=== PATIENT | female | born 1945 | race Caucasian/White ===

== ENCOUNTER → 2018-02-14 09:58 | Outpatient (REF) | payer OTHER, SELFPAY ==
[2018-02-14 21:33] LABS: Hemoglobin A1C 6.6 % (4.5-6.2)
[2018-02-14 21:44] LABS: ALT 22 U/L (12-78); AST 14 U/L (15-37); Albumin 3.5 g/dL (3.4-5.0); Alkaline Phosphatase 92 U/L (46-116); Anion Gap 9.7 mmol/L (3-11); BUN 20 mg/dL (7-18); Bilirubin, Total 0.3 mg/dL (0.2-1.0); CO2 28.3 mmol/L (21.0-32.0); CREATININE 0.81 mg/dL (0.55-1.02); Calcium 8.8 mg/dL (8.5-10.1); Chloride 105 mmol/L (98-107); Cholesterol 261 mg/dL (50-200); Glucose 118 mg/dL (70-100); HDL Cholesterol 35 mg/dL (40-60); LDL CHOLESTEROL 197 mg/dL (<100); Potassium 3.8 mmol/L (3.5-5.1); Sodium 143 mmol/L (136-145); TSH 1.79 uIU/mL (0.358-3.74); Total Protein 7.2 g/dL (6.4-8.2); Triglyceride 126 mg/dL (30-150)
== END ==
LOC: NCHCN 09:58
PROVIDERS: PCP Family Medicine; Visit Provider Family Medicine
DX: E78.5 Hyperlipidemia, unspecified (principal); I10 Essential (primary) hypertension; E03.9 Hypothyroidism, unspecified; R73.01 Impaired fasting glucose
CPT/HCPCS: 80053; 80061; 83721; 83036; 84443

== ENCOUNTER 2018-04-24 19:39 | Outpatient (REF) | payer OTHER, SELFPAY ==
[2018-04-24 21:53] LABS: ALT 25 U/L (12-78); Cholesterol 260 mg/dL (50-200); HDL Cholesterol 38 mg/dL (40-60); LDL CHOLESTEROL 197 mg/dL (<100); Triglyceride 154 mg/dL (30-150)
== END 2018-04-24 19:59 ==
LOC: NCHCN 19:39
PROVIDERS: PCP Family Medicine; Visit Provider Family Medicine
DX: E78.5 Hyperlipidemia, unspecified (principal)
CPT/HCPCS: 80061; 83721; 84460

== ENCOUNTER 2018-07-04 00:39 | Outpatient (CLI) | payer OTHER, SELFPAY ==
--- NOTE | 2018-07-04 12:35 | DI.US_ITS ---
SYMPTOMS/DIAGNOSIS: POSTMENOPAUSAL BLEEDING, N95.0 PELVIC ULTRASOUND: A transabdominal and transvaginal examination was carried out. The uterus measures 9.1 cm in length, 5.3 cm in height and 5.1 cm in width with an endometrial stripe thickness of 12+ mm. There are multiple cysts within the mid inferior portion of the endometrium. There is a 2.4 x 2.7 x 1.4 hyperechoic region in the anterior mid uterus with a hypoechoic 8 mm region. A 6 mm nabothian cyst is also identified. The ovaries were not visualized. The kidneys are normal. SUMMARY: A thickened, irregular, heterogeneous endometrium is demonstrated as described above. A region of abnormality involving the anterior fundus of the uterus likely represents a fibroid and measures 2.4 x 2.7 x 1.4 cm. Further evaluation of this patient with hysteroscopy is suggested to evaluate the possibility of an endometrial malignancy.
== END 2018-07-04 00:59 ==
PROVIDERS: PCP Family Medicine; Visit Provider Physician Assistant Medical
DX: N95.0 Postmenopausal bleeding (principal); R93.89 Abnormal findings on diagnostic imaging of other specified body structures; D25.9 Leiomyoma of uterus, unspecified
CPT/HCPCS: 76830; 76856

== ENCOUNTER 2018-07-24 13:37 | Outpatient (REF) | payer OTHER, SELFPAY ==
--- NOTE | 2018-07-24 10:40 | ENDOMET_PTH ---
PATIENT: SavDecember LOC: [facility] U#:[id number] AGE/SX: 72/F ROOM: RE07/24/[address]: Melvin Howard MD : 1945 BED: DIS: 07/24/2018 SPEC #: [id number] RECD: 07/24/18 17:37 STATUS: EDINSON REQ #: [id number] REAL: 07/24/18 10:[address]: Melvin Howard DEPT: Surgical Specimen RECD BY: Katiuska Mustafa ENTERED: 07/24/18 17:37 SP TYPE: Endomet OTHR DR: Maribel Blanc V Tissues: 1 - ENDOMETRIUM BX/CURRETTE Procedures: GROSS AND MICRO LEVEL 4 Comments: [id number]
--- NOTE | 2018-07-24 10:40 | PAPFT_PTH ---
PATIENT: SavDecember LOC: [facility] U#:[id number] AGE/SX: 72/F ROOM: RE07/24/[address]: Melvin Howard MD : 1945 BED: DIS: 07/24/2018 SPEC #: [id number] RECD: 07/24/18 17:56 STATUS: LYUBOVMiranda REMarkos #: [id number] REAL: 07/24/18 10:[address]: Melvin Howard DEPT: [facility] Cytology RECD BY: Katiuska Mustafa ENTERED: 07/24/18 17:57 SP TYPE: PAPFT OTHR DR: Maribel Blanc V Tissues: 1 - CX/ENDOCX FOR PAP SMEARS Procedures: PAP THIN PREP/UVM Screening Comments: [id number]
== END 2018-07-24 13:57 ==
LOC: LBN 13:37
PROVIDERS: PCP Family Medicine; Visit Provider Obstetrics & Gynecology
DX: N84.0 Polyp of corpus uteri (principal); N95.0 Postmenopausal bleeding; Z12.4 Encounter for screening for malignant neoplasm of cervix
CPT/HCPCS: 88142; 88305

== ENCOUNTER 2018-08-07 01:03 | Outpatient (CLI) | payer OTHER, SELFPAY ==
--- NOTE | 2018-08-07 08:00 | DI.MAMMO_ITS ---
SYMPTOMS/DIAGNOSIS: SCREENING FOR MALIGNANT NEOPLASM OF THE BREAST, Z12.31 MAMMOGRAMS: Mammograms were interpreted according to the usual protocol including computer analysis with CAD system, tomosynthesis and C view imaging. Comparison is with the prior examinations. No suspicious masses or microcalcifications are seen. There is no definite evidence of malignancy. IMPRESSION: Negative mammogram. Routine screening is recommended. Category 1, breast density A. MQSA ASSESSMENT OF FINDINGS: Negative. Category 1. Patient will receive a letter notifying them of these results. BI-RAD category A. The breasts are almost entirely fatty.
== END 2018-08-07 01:23 ==
PROVIDERS: PCP Family Medicine; Visit Provider Obstetrics & Gynecology
DX: Z12.31 Encounter for screening mammogram for malignant neoplasm of breast (principal)
CPT/HCPCS: 77063; 77067

== ENCOUNTER 2018-08-21 11:44 | Outpatient (CLI) | payer OTHER, SELFPAY ==
[2018-08-21 15:25] LABS: HCT 41.6 % (36.0-46.0); HGB 13.1 g/dL (12.0-15.5); Mean Corp. HGB Concentration 31.5 g/dL (32.0-36.0); Mean Corpuscular Hemoglobin 28.3 pg (27.0-33.0); Mean Corpuscular Volume 89.8 fL (80-95); Platelet Count 347 x1000/uL (130-400); RBC 4.63 m/cumm (4.00-5.20); RBC Distribution Width 13.2 % (11.7-14.6); White Blood Cell Count 9.19 k/cumm (4.4-10.8)
== END 2018-08-21 12:04 ==
PROVIDERS: PCP Family Medicine; Visit Provider Obstetrics & Gynecology
DX: N95.0 Postmenopausal bleeding (principal); Z01.818 Encounter for other preprocedural examination
CPT/HCPCS: 36415; 85027

== ENCOUNTER 2018-08-22 06:09 | Day surgery (SDC) | payer OTHER, SELFPAY ==
[2018-08-22 06:16] VITALS: BP 126/72; PULSE 71; RESP 20; TEMP 36.5; O2SAT 96
[2018-08-22] MEDS: Lactated Ringers 1,000 ML 100 ML IV (06:50)
--- NOTE | 2018-08-22 07:45 | ENDOMET_PTH ---
PATIENT: SavDecember LOC: [facility] U#:[id number] AGE/SX: 72/F ROOM: RE08/22/[address]: Melvin Howard MD : 1945 BED: DIS: 08/22/2018 SPEC #: [id number] RECD: 08/22/18 12:31 STATUS: EDINSON RAE #: [id number] REAL: 08/22/18 07:[address]: Melvin Howard DEPT: Surgical Specimen RECD BY: Katiuska Mustafa ENTERED: 08/22/18 12:36 SP TYPE: Endomet OTHR DR: Maribel Blanc V Tissues: 1 - ENDOMETRIUM BX/CURRETTE 2 - ENDOMETRIUM BX/CURRETTE Procedures: GROSS AND MICRO LEVEL 4 Comments: [id number]
[2018-08-22] MEDS: Lidocaine 1% Multi-Dose 50 ML VIAL (07:58)
[2018-08-22 08:26] VITALS: BP 142/66; PULSE 61; RESP 18; TEMP 36.4; O2SAT 96
--- NOTE | 2018-08-22 11:54 | W.PM.OP ---
Date of service: 08/22/18 Time of Service: 11:54 Operative Note DATE OF PROCEDURE: 08/22/18 PRE-OP DIAGNOSIS: Postmenopausal bleeding POST-OP DIAGNOSIS: same ANESTHESIA: MAC ESTIMATED BLOOD LOSS: 0 PATHOLOGY: other (Endometrial polyps, endometrial curettings) COMPLICATIONS: None Patient was transported to: PACU Patient's condition: stable Findings: 1. 2 endometrial polyps in a background of atrophic appearing endometrium. Procedure Description: The patient was taken to the operating room and after adequate level of anesthesia was obtained. The patient was placed in lithotomy position. The patient was prepped and draped in the usual sterile manner. The bladder was straight cathed for approximately 10 cc of clear urine. The weighted speculum was placed in the vagina with good visualization of the cervix. A paracervical block with 10 cc of 1% plain lidocaine was instilled. The anterior lip of the cervix was grasped with a single-tooth tenaculum and the cervix was gently dilated with Bess dilators. A 5 mm hysteroscope with normal saline distention media was advanced throug the cervix. 2 endometrial polyps were noted. The remaining endometrium appeared to be atrophic in appearance. The polyps were grasped with polyp forceps after removal of the hysteroscope. The polyps were removed easily. A sharp curettage was performed and submitted as a separate specimen. A second pass with the hysteroscope was made confirming complete removal of the polyps. All instrumentation was removed. Excellent hemostasis noted. The procedure was concluded at this point. Sponge, lap, and instrument counts were correct at the conclusion of the procedure and the patient was transferred to PACU in stable condition.
== END 2018-08-22 08:50 | disposition home or self-care (01) ==
LOC: SUR 06:10
PROVIDERS: PCP Family Medicine; Visit Provider Obstetrics & Gynecology
PROC: 0UDB8ZZ Extraction of Endometrium, Via Natural or Artificial Opening Endoscopic (ICD-10-PCS; CPT 58558; principal; 2018-08-22 07:30)
DX: N95.0 Postmenopausal bleeding (principal); N85.02 Endometrial intraepithelial neoplasia [EIN]; N85.01 Benign endometrial hyperplasia; I10 Essential (primary) hypertension; G47.33 Obstructive sleep apnea (adult) (pediatric)
CPT/HCPCS: 58558; 88305; J1100; J2405

== ENCOUNTER 2018-08-29 14:48 | Outpatient (REF) | payer OTHER, SELFPAY ==
[2018-08-29 19:47] LABS: HCT 41.8 % (36.0-46.0); HGB 13.7 g/dL (12.0-15.5); Mean Corp. HGB Concentration 32.8 g/dL (32.0-36.0); Mean Corpuscular Hemoglobin 29.1 pg (27.0-33.0); Mean Corpuscular Volume 88.7 fL (80-95); Mean Platelet Volume 10.9 fL (8.0-11.0); Platelet Count 292 x1000/uL (130-400); RBC 4.71 m/cumm (4.00-5.20); RBC Distribution Width 13.2 % (11.7-14.6)
[2018-08-29 20:24] LABS: Anion Gap 8.2 mmol/L (3-11); BUN 20 mg/dL (7-18); CO2 29.8 mmol/L (21.0-32.0); CREATININE 0.77 mg/dL (0.55-1.02); Calcium 9.6 mg/dL (8.5-10.1); Chloride 103 mmol/L (98-107); Glucose 151 mg/dL (70-100); Sodium 141 mmol/L (136-145); TSH (W/Ref FT4) 2.02 uIU/mL (0.358-3.74)
== END 2018-08-29 15:08 ==
LOC: NCHCN 14:48
PROVIDERS: PCP Family Medicine; Visit Provider Specialist/Technologist Athletic Trainer
DX: I10 Essential (primary) hypertension (principal); E03.9 Hypothyroidism, unspecified; Z01.818 Encounter for other preprocedural examination
CPT/HCPCS: 80048; 85027; 84443

== ENCOUNTER 2018-10-23 12:33 | Outpatient (CLI) | payer OTHER, SELFPAY ==
[2018-10-23 15:31] LABS: HCT 40.1 % (36.0-46.0); HGB 13.1 g/dL (12.0-15.5); Mean Corp. HGB Concentration 32.7 g/dL (32.0-36.0); Mean Corpuscular Hemoglobin 28.7 pg (27.0-33.0); Mean Corpuscular Volume 87.9 fL (80-95); Mean Platelet Volume 10.7 fL (8.0-11.0); Platelet Count 328 x1000/uL (130-400); RBC 4.56 m/cumm (4.00-5.20); White Blood Cell Count 10.25 k/cumm (4.4-10.8)
[2018-10-23 16:32] LABS: BUN 19 mg/dL (7-18); Chloride 102 mmol/L (98-107); Glucose 93 mg/dL (70-100); Sodium 139 mmol/L (136-145)
[2018-10-23 16:38] LABS: Calcium 9.6 mg/dL (8.5-10.1)
== END 2018-10-23 12:53 ==
PROVIDERS: PCP Family Medicine; Visit Provider Obstetrics & Gynecology
DX: N95.0 Postmenopausal bleeding (principal); Z01.818 Encounter for other preprocedural examination
CPT/HCPCS: 36415; 80048; 85027; 86850; 86900; 86901

== ENCOUNTER 2018-10-24 12:48 | Observation (INO) | payer OTHER, SELFPAY ==
[2018-10-23 12:48] VITALS: BP 143/77; PULSE 78; RESP 18; TEMP 36.7; O2SAT 94
[2018-10-24] VITALS (17 sets, daily range): BP systolic 92–154; BP diastolic 40–86; PULSE 55–80; RESP 16–21; TEMP 36.4–36.9; O2SAT 94–98
[2018-10-24] MEDS: Lactated Ringers 1,000 ML 125 ML IV ×4 (07:15→18:57)
[2018-10-24] MEDS: ceFAZolin 2 GM/50 ML BAG IVPB (10:15)
[2018-10-24] MEDS: Bupivacaine 0.25% Pres-Free 30 ML VIAL (11:30)
--- NOTE | 2018-10-24 12:00 | UTER_PTH ---
PATIENT: SavDecember LOC: [facility] U#:[id number] AGE/SX: 72/F ROOM: OBS.306 RE10/24/[address]: Melvin Howard MD : 1945 BED: A DIS: 10/25/2018 SPEC #: [id number] RECD: 10/24/18 17:32 STATUS: EDINSON REQ #: [id number] REAL: 10/24/18 12:[address]: Melvin Howard DEPT: Surgical Specimen RECD BY: Katiuska Mustafa ENTERED: 10/24/18 17:32 SP TYPE: UTER OTHR DR: Maribel Blanc V Tissues: 1 - UTERUS W OR W/O OVARIES(NOT TUMOR/PROLAPSE) Procedures: GROSS AND MICRO LEVEL 5 Comments: [id number]
[2018-10-24] MEDS: Vasopressin 20 UNITS/ML VIAL (12:30)
[2018-10-24] MEDS: Normal Saline 20 ML VIAL (12:30)
--- NOTE | 2018-10-24 15:34 | ROE_ITS ---
Date of service: 10/24/18 Time of Service: 15:26 Operative Note DATE OF PROCEDURE: 10/24/18 PRE-OP DIAGNOSIS: Complex atypical hyperplasia of the endometrium POST-OP DIAGNOSIS: same PROCEDURE: LAVH BSO, cystoscopy SURGEON: Melvin Howard ASSISTING SURGEON: Marquita Hernandez ANESTHESIA: GETA ESTIMATED BLOOD LOSS: 100 PATHOLOGY: other (Uterus tubes and ovaries) COMPLICATIONS: None Patient was transported to: PACU Patient's condition: stable Findings: Normal appearance to uterus, tubes and ovaries. Procedure Description: The patient was taken to the operating room and after adequate level of general anesthesia was obtained. The patient was placed in lithotomy position. The patient was prepped and draped in usual sterile manner. A Guerrier catheter was placed in the bladder draining clear urine. A Roadster uterine manipulator was placed through the cervix. The patient was repositioned. The surgeon was regloved. Attention was then turned to the patient's abdomen. A small infraumbilical skin incision was then made with a #15 blade scalpel after infiltration with 0.5% Marcaine solution. Sharp dissection was carried down to the underlying layer of fascia. The fascia was grasped and elevated with 2 cord clamps and the fascia was incised sharply with a 15 blade scalpel. The peritoneum was entered sharply with hemostats. 2S retractors were placed and 2 sutures of 0 Vicryl were placed inside the vaginal incision. The Roy trocar was advanced without difficulty and secured in place. The abdomen was insufflated to approximately 40 mmHg with carbon dioxide. 2 5 mm trochars were placed under direct visualization in the right and left lower quadrant. Uterus is grossly normal in appearance. The ovaries are normal in appearance. The fallopian tubes were also normal in appearance. With use of the LigaSure device dissection was first carried across the right suspensory ligament and carried down to the broad ligament. Dissection was carried across the round ligament and dissection was carried across the anterior leaf developing the bladder flap to the midline. Further dissection down the broad ligament was taken down to the level of the uterine vessels with the use of the LigaSure device. Attention was turned to the opposite side where similar dissection was carried out. The bladder flap dissection was completed and the bladder was reflected inferiorly. Next hemostasis was noted attention was then turned to the vaginal portion of this procedure. The patient was repositioned. A weighted speculum was placed in the vagina with good visualization of the cervix. The cervix was grasped with a single-tooth tenaculum. The paracervical tissues were infiltrated with vasopressin solution at a concentration of 20 mL's in 60 cc of saline. A circumferential incision was made at the vesicocervical junction with a #10 blade scalpel. Blunt sharp dissection used to develop the anterior posterior planes. The cul-de-sac was entered sharply. The anterior plane was developed again with blunt and sharp dissection to the peritoneum was entered anteriorly and a right angle retractor was placed reflecting the bladder anteriorly. The uterosacral ligaments were cross clamped bilaterally with Seema clamps transected and the incision suture ligated with Seema stitch of 0 Vicryl. The uterine arteries were crossclamped bilaterally with Seema clamps transected and this was ligated with 0 Vicryl suture. 2 additional pedicles inside completed dissection along the broad ligament. The uterus was delivered vaginally. Initial pedicles held on the uterosacral ligament were incorporated into the vaginal angles with use of a free needle. The vaginal cuff was thoroughly inspected and was noted to be hemostatic as were all pedicles. The vaginal cuff was closed with interrupted vertical mattress sutures of 0 Vicryl. 10 mL's of methylene blue was given intravenously. A Guerrier catheter was removed. A 5 mm 30 degree cystoscope was advanced with normal saline distention media the bladder was inspected was noted to be free of trauma. Both UOs were visualized with a strong reflux of urine from both UOs. The cystoscope was removed and Guerrier catheter replaced. Attention was then turned to the patient's abdomen. The pneumoperitoneum was reestablished. Laparoscope was reinserted. A thorough irrigation was performed. All pedicles were examined and were noted to be hemostatic. The vaginal cuff was also inspected and noted to be hemostatic. The two 5 mm trochars were removed under direct visualization. Abdomen was desufflated and the umbilical trocar was removed. The fascia at the umbilicus closed with the previously placed sutures of 0 Vicryl. The skin of each incision was closed with interrupted sutures of 4-0 Monocryl and Dermabond was applied. The procedure was concluded at this point sponge lap and counts were correct at the conclusion of the procedure and the patient tolerated the procedure well and was transferred to PACU stable condition.
[2018-10-24] MEDS: oxyCODONE 5 mg/Acetaminophen 325 mg TAB PO (16:32)
[2018-10-24] MEDS: Normal Saline Flush 10 ML SYR IV (18:27)
[2018-10-24] MEDS: Ketorolac 30 MG/ML VIAL IVP ×2 (18:28→23:59)
[2018-10-24] MEDS: Docusate Sodium 100 MG CAP PO (19:58)
[2018-10-25] VITALS: BP 140/74; PULSE 63; RESP 18; TEMP 36.8; O2SAT 96
[2018-10-25 05:00] VITALS: BP 128/66; PULSE 65; RESP 18; TEMP 36.8; O2SAT 96
[2018-10-25] MEDS: Ketorolac 30 MG/ML VIAL IVP (05:45)
[2018-10-25] MEDS: Normal Saline Flush 10 ML SYR IV (05:45)
[2018-10-25 07:10] LABS: HCT 33.6 % (36.0-46.0); HGB 10.8 g/dL (12.0-15.5); Mean Corp. HGB Concentration 32.1 g/dL (32.0-36.0); Mean Corpuscular Hemoglobin 28.6 pg (27.0-33.0); Mean Corpuscular Volume 89.1 fL (80-95); Mean Platelet Volume 10.6 fL (8.0-11.0); Platelet Count 278 x1000/uL (130-400); RBC 3.77 m/cumm (4.00-5.20); RBC Distribution Width 13.1 % (11.7-14.6); White Blood Cell Count 14.28 k/cumm (4.4-10.8)
[2018-10-25 07:30] VITALS: BP 137/70; PULSE 71; RESP 16; TEMP 36.6
--- NOTE | 2018-10-25 09:47 | W.PM.DS.N ---
Date of service: 10/25/18 Time of Service: 09:47 DS: Diagnosis Discharge Diagnosis (1) S/P vaginal hysterectomy: Start date: 10/24/18 Status: Acute (2) H/O bilateral salpingo-oophorectomy: Start date: 10/24/18 Status: Acute Discharge Plan Discharge Details Reason For Visit: COMPLEX ATYPICAL HYPERPLASIA Admit Date/Time: 10/24/18 12:48 Admit Provider: Melvin Howard Attending Provider: Melvin Howard Primary Care Provider: Maribel Blanc V Hospital Course Hospital Course: Patient was admitted on the morning of surgery and underwent a transvaginal hysterectomy with bilateral salpingo-oophorectomy her postop course was uncomplicated she was discharged home on postop day 1 successfully voiding spontaneously and tolerating a regular diet. She required minimal pain medication and declined cardiac medication at the time of discharge. Home Meds and New Rx's Prescriptions: No Action vitamin E (dl, acetate) 400 unit capsule 400 unit PO DAILY RF: 0 metformin 500 mg tablet 500 mg PO DAILY RF: 0 latanoprost 2.5 ML drops 1 drp Ophthalmic HS RF: 0 lisinopril 20 MG tablet 20 mg PO DAILY RF: 0 levothyroxine [Synthroid] 25 MCG tablet 0.025 mg PO TWO DAILY RF: 0 hydrochlorothiazide 12.5 MG capsule 25 mg PO DAILY RF: 0 zinc gluconate 50 MG tablet 1 tab PO DAILY RF: 0 magnesium oxide 250 MG tablet 1 tab PO DAILY RF: 0 Super B Complex + C 150 MG tablet 150 mg PO DAILY RF: 0 cholecalciferol (vitamin D3) 1,000 UNIT tablet 1,000 unit PO TWO DAILY RF: 0 VITAMIN B6 100 mg PO DAILY RF: 0 megestrol 40 mg tablet 40 mg PO BID Qty: 60 RF: 3 calcium carbonate [Tums] 200 mg calcium (500 mg) Tablet,Chewable 200 mg PO PRN PRNRF: 0 ketoconazole 2 % Cream 1 applic TOPICAL DAILY RF: 0 dorzolamide-timolol 22.3-6.8 mg/mL Drops 1 ophthalmic (eye) BID RF: 0 Discharge Instructions Stand Alone Forms: DSU Post Gynecology Surgery Activity:: Activity as Tolerated Equipment/Supplies:: No Equipment Needed Diet:: As Tolerated Exam Const General: cooperative and no acute distress Orientation: alert and oriented x3 Resp Effort & Inspection: normal respiratory effort Auscultation: clear to auscultation bilaterally Cardio Palpation: normal PMI Rate: regular rate Rhythm: regular rhythm Heart Sounds: S1 normal and S2 normal GI Inspection: normal to inspection Palpation: soft (No guarding rebound or masses) General: deferred (Patient denies vaginal bleeding) Skin General skin exam: no rashes or lesions noted Extrem General: normal to inspection, full ROM and normal capillary refill DS: Data Vitals/I&O Vitals and I&O: Vital Signs Temperature 97.9 F 10/25/18 07:30 Temperature Source Oral 10/25/18 07:30 Pulse 71 10/25/18 07:30 Pulse Rhythm Regular 10/25/18 07:30 Respiratory Rate 16 10/25/18 07:30 Respiratory Effort 10/25/18 07:30 Respiratory Depth Normal 10/25/18 07:30 Respiratory Pattern Normal 10/25/18 07:30 Blood Pressure 137/70 10/25/18 07:30 Pulse Oximetry 96 10/25/18 05:00 Respiratory End-tidal CO2 39 10/24/18 14:30 Oxygen Delivery Method Room Air 10/25/18 07:30 Oxygen Flow Rate 0 10/25/18 07:30 Pain Level 0 10/24/18 19:28 Comment 10/23/18 12:48 Intake & Output 10/24/18 10/24/18 10/25/18 11:59 23:59 11:59 Intake Total 25 / 3321.417 2150.417 / 3321.417 1741 / 1741 Output Total 600 / 600 250 / 250 Balance 25 / 2721.417 1550.417 / 2721.417 1491 / 1491 Weight 196 lb 6.91 oz Intake: IV 25 / 3081.417 1910.417 / 3081.417 1621 / 1621 Oral 240 / 240 120 / 120 Output: Urine 350 / 350 250 / 250 Estimated Blood Loss 250 / 250 Other: Urine Color Pale Green Green Yellow Indigo Urine Appearance Clear Cloudy Clear Urine Odor None Comment methylene blue given so blue indigo urine Emesis Description None Voiding Methods Toilet Toilet Labs on day of discharge: Labs from last 24 hours 10/25/18 06:55 WBC 14.28 H RBC 3.77 L Hgb 10.8 L D Hct 33.6 L MCV 89.1 MCH 28.6 MCHC 32.1 RDW 13.1 Plt Count 278 MPV 10.6 PFSH Surgical History S/P arthroscopic surgery of left knee (Acute) History of mandibular surgery (Acute) Hx of dilation and curettage (Acute) Hx of eye surgery (Acute) Hx of thumb surgery (Acute) History of colonoscopy (Chronic) History of shoulder surgery (Chronic) H/O excision of ganglion cyst (Acute) History of colposcopy (Acute) Social History Smoking/Tobacco Use Status: Never Drug use: Never Substance use type: does not use Do you feel safe at home: Yes Do you feel safe in your relationship?: Yes
== END 2018-10-25 10:35 | disposition home or self-care (01) ==
LOC: SUR 13:32 → OBS 14:55
PROVIDERS: Obstetrics & Gynecology Gynecology; Admitting Provider Obstetrics & Gynecology; PCP Family Medicine; Visit Provider Obstetrics & Gynecology
PROC: 0UT9FZZ Resection of Uterus, Via Natural or Artificial Opening With Percutaneous Endoscopic Assistance (ICD-10-PCS; CPT 58552; principal; 2018-10-24 08:30)
DX: N85.02 Endometrial intraepithelial neoplasia [EIN] (principal); G47.33 Obstructive sleep apnea (adult) (pediatric); E03.9 Hypothyroidism, unspecified; E66.9 Obesity, unspecified; I10 Essential (primary) hypertension; E11.9 Type 2 diabetes mellitus without complications; N84.0 Polyp of corpus uteri; N80.0 Endometriosis of uterus; D25.2 Subserosal leiomyoma of uterus; N72 Inflammatory disease of cervix uteri; N83.8 Other noninflammatory disorders of ovary, fallopian tube and broad ligament; N83.292 Other ovarian cyst, left side; N83.291 Other ovarian cyst, right side; Z98.51 Tubal ligation status
CPT/HCPCS: 58552; 85027; 99238; 88307; J0131; J0690; J1100; J1885; J2250; J2405; J3010

== ENCOUNTER 2018-11-28 13:14 | Outpatient (CLI) | payer OTHER, SELFPAY ==
--- NOTE | 2018-12-07 12:56 | DIABASSESS_ITS ---
DESCRIPTION/ASSESSMENT: Vickie Ang requests referral for on Medical nutrition Therapy with newly diagnosed type 2 diabetes. NUTRITION: Vickie stopped eating potato, orange juice, switched to whole grain and now is eating sandwiches with lettuce instead of bread. When she has fruit she rinses it and cuts her portion by 1/2. She has 2 egg cheese omelet with salsa or 2 fried egg with Activa yogurt. Has soup or pork chops for supper. Snacks on nuts, She sometimes eats at work. MEDICATION: Metformin 500mg twice daily. MONITORING: Fasting 115-150; pre-supper 110-138. PHYSICAL ACTIVITY: Vickie is not physically active except for cleaning at work. Time is her limiting factor. STRESS: Vickie admits to family stress but denies symptoms of depression. She also states she does not sleep well and needs support for her C-Pap. INTERVENTION: Vickie is motivated to manage blood sugars focused on food. NUTRITION: Reviewed diabetes food guide with blending carbohydrate with protein and fat. Discussed foods to package for work. PHYSICAL ACTIVITY: Discussed adding 5-10 minutes of walking on days she is not otherwise active. MONITORING: She will continue to monitor 1-2 times a day to test a change. She will document her food with blood sugars. PLAN: When shopping, she will plan meals, make a list prior to shopping. She has a list of food options to package for work. She will attempt additional physical activity as a way to decrease stress. Individual MNT __3__ units billed TIME IN: 1300 OUT: 1355 No DM group education series being offered at this time.
== END 2018-11-28 13:34 ==
PROVIDERS: PCP Family Medicine; Visit Provider Dietitian, Registered
DX: E11.9 Type 2 diabetes mellitus without complications (principal); Z79.84 Long term (current) use of oral hypoglycemic drugs; Z71.3 Dietary counseling and surveillance
CPT/HCPCS: 97802

== ENCOUNTER 2018-12-17 09:27 | Emergency (ER) | payer OTHER, SELFPAY ==
[2018-12-17 09:31] VITALS: BP 169/106; PULSE 82; RESP 20; TEMP 36.8; O2SAT 98
--- NOTE | 2018-12-17 09:32 | W.ED.GENAD ---
Discharge Plan Disposition Patient Disposition: HOME Condition: Stable Discharge Details Chief Complaint: Allergic Clinical Impression: Angioedema, Hypertension Primary Care Provider: Maribel Blanc V ED Provider: Beatrice Harris Home Meds and New Rx's Prescriptions: New prednisone 50 mg tablet 50 mg PO DAILY Qty: 4 RF: 0 Discontinued lisinopril 20 MG tablet 20 mg PO DAILY RF: 0 No Action vitamin E (dl, acetate) 400 unit capsule 400 unit PO DAILY RF: 0 metformin 500 mg tablet 500 mg PO DAILY RF: 0 latanoprost 2.5 ML drops 1 drp Ophthalmic HS RF: 0 levothyroxine [Synthroid] 25 MCG tablet 0.025 mg PO TWO DAILY RF: 0 hydrochlorothiazide 12.5 MG capsule 25 mg PO DAILY RF: 0 zinc gluconate 50 MG tablet 1 tab PO DAILY RF: 0 magnesium oxide 250 MG tablet 1 tab PO DAILY RF: 0 Super B Complex + C 150 MG tablet 150 mg PO DAILY RF: 0 cholecalciferol (vitamin D3) 1,000 UNIT tablet 1,000 unit PO TWO DAILY RF: 0 VITAMIN B6 100 mg PO DAILY RF: 0 calcium carbonate [Tums] 200 mg calcium (500 mg) Tablet,Chewable 200 mg PO PRN PRNRF: 0 ketoconazole 2 % Cream 1 applic TOPICAL DAILY RF: 0 dorzolamide-timolol 22.3-6.8 mg/mL Drops 1 ophthalmic (eye) BID RF: 0 Discharge Instructions Instructions: Prednisone (By mouth), Angioedema (ED) Additional Instructions: Please return immediately to the emergency department if you develop any new or worsening symptoms or if you become otherwise concerned. It is extremely important that you attend your scheduled appointment at your primary care doctor's office tomorrow at 1130 in follow-up for this visit. Referrals: Maribel Blanc MD [Primary Care Provider] - Discharge Data Discharge Date/Time-TO BE ENTERED AT DEPARTURE: 12/17/18 12:48 Medical Decision Making Vickie Ang is a 72 y/o woman with h/o HTN, HLD, hypothyroidism who presented to the emergency department with tongue swelling/throat swelling that began last night, now improving. On exam Pt is very well and non-toxic appearing, handling secretions without issue, normal voice. Barely appreciable asymmetry of the tongue with patent airway, uvula midline. No appreciable edema below the tongue or of the neck. Exam/hx not c/w infectious process, sepsis, impending airway compromise. Concern for LINDSAY-I angioedema vs allergic rxn vs idiopathic, unclear degree of throat swelling. Plan for IV benadryl, steroids, pepcid, soft tissue neck xray. Will monitor and reassess. On reassessment Pt reports symptoms have resolved completely. She reports tongue and neck seem back to baseline with no further swelling. She reports that she has no complaints and feels very well, requests d/c home. Soft tissue neck normal. I had a lengthy discussion with the Pt re: cessation of lisinopril, RTED precautions, importance of outpt f/u. She verbalized understanding of the plan. All questions were answered. I attempted to call Dr. Blanc, Pt's PCP, who is not in the office today. I spoke to one of her nurses, and reviewed plan to stop lisinopril and have patient seen as soon as possible and follow-up. They will see patient tomorrow at 1130. Patient was amenable to this plan. Medical Records Medical records reviewed: Yes I reviewed the patient's medical records. Imaging Data Radiologic Study: Attestation: I personally reviewed and interpreted this imaging study as follows: Radiologist's impression: SOFT TISSUE NECK: Two views were obtained. The epiglottis is unremarkable in appearance. No gross abnormality of airway seen. No prevertebral soft tissue swelling. CONCLUSION: Negative soft tissue neck. If there is a high clinical suspicion of airway obstruction or cervical mass, additional evaluation with CT should be considered. HPI General Mode of arrival: ambulatory. Date/Time Provider Initiated Documentation: 12/17/18 09:32. Limitations to Documentation: no limitations. Information obtained by: patient, RN notes reviewed and old records reviewed. HPI Narrative: Vickie Ang is a 72-year-old woman with history of hypertension, hypothyroidism, hyperlipidemia, obstructive sleep apnea presents the emergency department with tongue and throat swelling. Patient reports that last evening she noticed that the right side of her tongue seems swollen, and also the right side of her throat. Patient reports that she slept in an upright position on the couch due to this last night. She reports that tongue swelling has improved but not resolved this morning. She reports that throat swelling seems unchanged since onset. Patient has never had similar symptoms in the past. No new known exposures. Has been taking lisinopril for many years without issue. Patient denies drooling, any difficulty breathing, or difficulty swallowing. She ate a peanut butter sandwich this morning without issue. No pain, no fevers, no vomiting, feels otherwise in her usual state of health. No recent illness or recent travel. Related Data Home Medications Medication Instructions Recorded Confirmed Super B Complex + C 150 mg PO DAILY 08/05/13 11/06/18 Vitamin B6 100 mg PO DAILY 08/05/13 11/06/18 cholecalciferol (vitamin D3) 1,000 unit PO TWO DAILY 08/05/13 11/06/18 hydrochlorothiazide 25 mg PO DAILY tab-cap 08/05/13 11/06/18 latanoprost 1 drp OPHTHALMIC HS drp 08/05/13 11/06/18 levothyroxine [Synthroid] 0.025 mg PO TWO DAILY tab-cap 08/05/13 11/06/18 magnesium oxide 1 tab PO DAILY 08/05/13 11/06/18 zinc gluconate 1 tab PO DAILY 08/05/13 11/06/18 vitamin E (dl, acetate) 400 unit 400 unit PO DAILY 07/24/18 11/06/18 capsule dorzolamide-timolol 1 OPHTHALMIC (EYE) BID 08/22/18 11/06/18 metformin 500 mg tablet 500 mg PO DAILY tab 10/10/18 11/06/18 calcium carbonate [Tums] 200 mg PO PRN PRN 10/23/18 11/06/18 ketoconazole 1 applic TOPICAL DAILY 10/23/18 11/06/18 prednisone 50 mg PO DAILY #4 tab 12/17/18 Previous Rx's Medication Instructions Recorded prednisone 50 mg PO DAILY #4 tab 12/17/18 Allergies Allergy/AdvReac Type Severity Reaction Status Date / Time simvastatin AdvReac Intermediate Very sleepy Unverified 11/06/18 09:54 Review of Systems Review of Systems Constitutional: denies fevers Eyes: denies eye pain ENT: denies facial pain, dental pain, sore throat, drooling, voice change, facial swelling Cardiovascular: denies chest pain Respiratory: denies SOB, cough GI: denies abdominal pain, vomiting, diarrhea : denies flank pain MSK: denies back pain, neck pain, arthralgias, myalgias Skin: denies rash Neuro: denies headaches, weakness PFSH Medical History Sleep apnea (Acute) Hypothyroidism (Chronic) Depressive disorder (Acute) Obesity (Chronic) Hypertension (Chronic) Glaucoma (Chronic) Hyperlipemia (Acute) S/P tubal ligation (Acute) Achilles tendinitis (Acute) Basal cell carcinoma of anterior chest (Acute) Dry skin (Acute) Elbow pain, right (Acute) Foot pain, left (Acute) Headache (Acute) Headache, post-traumatic (Acute) History of closed head injury (Acute) History of hysteroscopy (Acute) History of positive PPD (Acute) Impaired fasting glucose (Acute) Postmenopausal bleeding (Acute) Shoulder pain, right (Acute) Skin lesion (Acute) Tubulovillous adenoma of colon (Acute) Wrist pain, left (Acute) Diabetes mellitus (Chronic) Surgical History S/P arthroscopic surgery of left knee (Acute) H/O excision of ganglion cyst (Acute) History of colposcopy (Acute) History of mandibular surgery (Acute) Hx of dilation and curettage (Acute) Hx of eye surgery (Acute) Hx of thumb surgery (Acute) History of colonoscopy (Chronic) History of shoulder surgery (Chronic) Social History Smoking/Tobacco Use Status: Never Alcohol Intake: current Alcohol Intake frequency: a few times a month Alcohol type: wine Drug use: Never Substance use type: does not use Do you feel safe at home: Yes Do you feel safe in your relationship?: Yes Exam Narrative Exam Narrative: Constitutional: well and [id number], pleasant, conversing normally HENT: head atraumatic/normocephalic/normal inspection, mucous membranes moist, trace edema right tongue, airway patent, no sublingual edema, uvula midline, no intraoral lesion, no lip edema Eyes: conjunctiva normal, sclera normal, pupils 3mm b/l Neck: no stridor, normal ROM, trachea midline, no appreciable edema, no TTP, FROM Chest: normal inspection Resp: normal work of breathing, LCTAB Cardio: normal rate, normal rhythm, no murmur appreciated Back: normal inspection, no rash Skin: warm, dry, normal color, no rash Neuro: alert, not altered, grossly non-focal, normal tone Ext: moving all extremities equally Psych: normal mood, normal affect, normal behavior
[2018-12-17] MEDS: diphenhydrAMINE 50 MG/ML VIAL 25 MG IVP (10:06)
[2018-12-17] MEDS: Famotidine 20 MG/2 ML VIAL IV (10:07)
[2018-12-17] MEDS: methylPREDNISolone SUCC 125 MG VIAL IVP (10:07)
--- NOTE | 2018-12-17 10:49 | ED.GENADUL_ITS ---
Discharge Plan Disposition Patient Disposition: HOME Condition: Stable Discharge Details Chief Complaint: Allergic Clinical Impression: Angioedema, Hypertension Primary Care Provider: Maribel Blanc V ED Provider: Beatrice Harris Home Meds and New Rx's Prescriptions: New prednisone 50 mg tablet 50 mg PO DAILY Qty: 4 RF: 0 Discontinued lisinopril 20 MG tablet 20 mg PO DAILY RF: 0 No Action vitamin E (dl, acetate) 400 unit capsule 400 unit PO DAILY RF: 0 metformin 500 mg tablet 500 mg PO DAILY RF: 0 latanoprost 2.5 ML drops 1 drp Ophthalmic HS RF: 0 levothyroxine [Synthroid] 25 MCG tablet 0.025 mg PO TWO DAILY RF: 0 hydrochlorothiazide 12.5 MG capsule 25 mg PO DAILY RF: 0 zinc gluconate 50 MG tablet 1 tab PO DAILY RF: 0 magnesium oxide 250 MG tablet 1 tab PO DAILY RF: 0 Super B Complex + C 150 MG tablet 150 mg PO DAILY RF: 0 cholecalciferol (vitamin D3) 1,000 UNIT tablet 1,000 unit PO TWO DAILY RF: 0 VITAMIN B6 100 mg PO DAILY RF: 0 calcium carbonate [Tums] 200 mg calcium (500 mg) Tablet,Chewable 200 mg PO PRN PRNRF: 0 ketoconazole 2 % Cream 1 applic TOPICAL DAILY RF: 0 dorzolamide-timolol 22.3-6.8 mg/mL Drops 1 ophthalmic (eye) BID RF: 0 Discharge Instructions Instructions: Prednisone (By mouth), Angioedema (ED) Additional Instructions: Please return immediately to the emergency department if you develop any new or worsening symptoms or if you become otherwise concerned. It is extremely important that you attend your scheduled appointment at your primary care doctor's office tomorrow at 1130 in follow-up for this visit. Referrals: Maribel Blanc MD [Primary Care Provider] - Discharge Data Discharge Date/Time-TO BE ENTERED AT DEPARTURE: 12/17/18 12:48 Medical Decision Making Vickie Ang is a 72 y/o woman with h/o HTN, HLD, hypothyroidism who presented to the emergency department with tongue swelling/throat swelling that began last night, now improving. On exam Pt is very well and non-toxic appearing, handling secretions without issue, normal voice. Barely appreciable asymmetry of the tongue with patent airway, uvula midline. No appreciable edema below the tongue or of the neck. Exam/hx not c/w infectious process, sepsis, impending airway compromise. Concern for LINDSAY-I angioedema vs allergic rxn vs idiopathic, unclear degree of throat swelling. Plan for IV benadryl, steroids, pepcid, soft tissue neck xray. Will monitor and reassess. On reassessment Pt reports symptoms have resolved completely. She reports tongue and neck seem back to baseline with no further swelling. She reports that she has no complaints and feels very well, requests d/c home. Soft tissue neck normal. I had a lengthy discussion with the Pt re: cessation of lisinopril, RTED precautions, importance of outpt f/u. She verbalized understanding of the plan. All questions were answered. I attempted to call Dr. Blanc, Pt's PCP, who is not in the office today. I sp francie to one of her nurses, and reviewed plan to stop lisinopril and have patient seen as soon as possible and follow-up. They will see patient tomorrow at 1130. Patient was amenable to this plan. Medical Records Medical records reviewed: Yes I reviewed the patient's medical records. Imaging Data Radiologic Study: Attestation: I personally reviewed and interpreted this imaging study as follows: Radiologist's impression: SOFT TISSUE NECK: Two views were obtained. The epiglottis is unremarkable in appearance. No gross abnormality of airway seen. No prevertebral soft tissue swelling. CONCLUSION: Negative soft tissue neck. If there is a high clinical suspicion of airway obstruction or cervical mass, additional evaluation with CT should be considered. HPI General Mode of arrival: ambulatory . Date/Time Provider Initiated Documentation: 12/17/18 09:32 . Limitations to Documentation: no limitations . Information obtained by: patient, RN notes reviewed and old records reviewed . HPI Narrative: Vickie Ang is a 72-year-old woman with history of hypertension, hypothyroidism, hyperlipidemia, obstructive sleep apnea presents the emergency department with tongue and throat swelling. Patient reports that last evening she noticed that the right side of her tongue seems swollen, and also the right side of her throat. Patient reports that she slept in an upright position on the couch due to this last night. She reports that tongue swelling has improved but not resolved this morning. She reports that throat swelling seems unchanged since onset. Patient has never had similar symptoms in the past. No new known exposures. Has been taking lisinopril for many years without issue. Patient denies drooling, any difficulty breathing, or difficulty swallowing. She ate a peanut butter sandwich this morning without issue. No pain, no fevers, no vomiting, feels otherwise in her usual state of health. No recent illness or recent travel. Related Data Home Medications Medication Instructions Recorded Confirmed Super B Complex + C 150 mg PO DAILY 08/05/13 11/06/18 Vitamin B6 100 mg PO DAILY 08/05/13 11/06/18 cholecalciferol (vitamin D3) 1,000 unit PO TWO DAILY 08/05/13 11/06/18 hydrochlorothiazide 25 mg PO DAILY tab-cap 08/05/13 11/06/18 latanoprost 1 drp OPHTHALMIC HS drp 08/05/13 11/06/18 levothyroxine [Synthroid] 0.025 mg PO TWO DAILY tab-cap 08/05/13 11/06/18 magnesium oxide 1 tab PO DAILY 08/05/13 11/06/18 zinc gluconate 1 tab PO DAILY 08/05/13 11/06/18 vitamin E (dl, acetate) 400 unit 400 unit PO DAILY 07/24/18 11/06/18 capsule dorzolamide-timolol 1 OPHTHALMIC (EYE) BID 08/22/18 11/06/18 metformin 500 mg tablet 500 mg PO DAILY tab 10/10/18 11/06/18 calcium carbonate [Tums] 200 mg PO PRN PRN 10/23/18 11/06/18 ketoconazole 1 applic TOPICAL DAILY 10/23/18 11/06/18 prednisone 50 mg PO DAILY #4 tab 12/17/18 Previous Rx's Medication Instructions Recorded prednisone 50 mg PO DAILY #4 tab 12/17/18 Allergies Allergy/AdvReac Type Severity Reaction Status Date / Time simvastatin AdvReac Intermediate Very sleepy Unverified 11/06/18 09:54 Review of Systems Review of Systems Constitutional: denies fevers Eyes: denies eye pain ENT: denies facial pain, dental pain, sore throat, drooling, voice change, facial swelling Cardiovascular: denies chest pain Respiratory: denies SOB, cough GI: denies abdominal pain, vomiting, diarrhea : denies flank pain MSK: denies back pain, neck pain, arthralgias, myalgias Skin: denies rash Neuro: denies headaches, weakness [facility] Medical History Sleep apnea (Acute) Hypothyroidism (Chronic) Depressive disorder (Acute) Obesity (Chronic) Hypertension (Chronic) Glaucoma (Chronic) Hyperlipemia (Acute) S/P tubal ligation (Acute) Achilles tendinitis (Acute) Basal cell carcinoma of anterior chest (Acute) Dry skin (Acute) Elbow pain, right (Acute) Foot pain, left (Acute) Headache (Acute) Headache, post-traumatic (Acute) History of closed head injury (Acute) History of hysteroscopy (Acute) History of positive PPD (Acute) Impaired fasting glucose (Acute) Postmenopausal bleeding (Acute) Shoulder pain, right (Acute) Skin lesion (Acute) Tubulovillous adenoma of colon (Acute) Wrist pain, left (Acute) Diabetes mellitus (Chronic) Surgical History S/P arthroscopic surgery of left knee (Acute) H/O excision of ganglion cyst (Acute) History of colposcopy (Acute) History of mandibular surgery (Acute) Hx of dilation and curettage (Acute) Hx of eye surgery (Acute) Hx of thumb surgery (Acute) History of colonoscopy (Chronic) History of shoulder surgery (Chronic) Social History Smoking/Tobacco Use Status: Never Alcohol Intake: current Alcohol Intake frequency: a few times a month Alcohol type: wine Drug use: Never Substance use type: does not use Do you feel safe at home: Yes Do you feel safe in your relationship?: Yes Exam Narrative Exam Narrative: Constitutional: well and [id number], pleasant, conversing normally HENT: head atraumatic/normocephalic/normal inspection, mucous membranes moist, trace edema right tongue, airway patent, no sublingual edema, uvula midline, no intraoral lesion, no lip edema Eyes: conjunctiva normal, sclera normal, pupils 3mm b/l Neck: no stridor, normal ROM, trachea midline, no appreciable edema, no TTP, FROM Chest: normal inspection Resp: normal work of breathing, LCTAB Cardio: normal rate, normal rhythm, no murmur appreciated Back: normal inspection, no rash Skin: warm, dry, normal color, no rash Neuro: alert, not altered, grossly non-focal, normal tone Ext: moving all extremities equally Psych: normal mood, normal affect, normal behavior
--- NOTE | 2018-12-17 11:45 | DI.RAD_ITS ---
SYMPTOMS/DIAGNOSIS: TONGUE SWELLING, SENSATION THROAT SWELLING ON ACEI SOFT TISSUE NECK: Two views were obtained. The epiglottis is unremarkable in appearance. No gross abnormality of airway seen. No prevertebral soft tissue swelling. CONCLUSION: Negative soft tissue neck. If there is a high clinical suspicion of airway obstruction or cervical mass, additional evaluation with CT should be considered.
[2018-12-17 12:47] VITALS: BP 162/72; PULSE 70; RESP 16; TEMP 36.6; O2SAT 95
== END 2018-12-17 12:48 | disposition home or self-care (01) ==
PROVIDERS: Emergency Provider Student in an Organized Health Care Education/Training Program; PCP Family Medicine
DX: T78.3XXA Angioneurotic edema, initial encounter (principal); I10 Essential (primary) hypertension
CPT/HCPCS: 96374; 96375; 96376; 99284; 70360; J1200; J2930

== ENCOUNTER 2019-02-05 08:19 | Outpatient (REF) | payer OTHER, SELFPAY ==
[2019-02-05 21:51] LABS: Abs Immature Grans 0.01 k/cumm (0.0-0.09); Absolute Basophil Count 0.03 k/cumm (0.0-0.2); Absolute Eosinophil Count 0.31 k/cumm (0.0-0.7); Absolute Lymphocyte Count 2.01 k/cumm (1.2-3.4); Absolute Monocyte Count 0.67 k/cumm (0.11-0.7); Absolute Neutrophil Count 5.51 k/cumm (1.2-6.7); Basophils % 0.4; Eosinophils % 3.6; HCT 39.7 % (36.0-46.0); HGB 12.8 g/dL (12.0-15.5); Immature Grans % 0.1; Lymphocytes % 23.5; Mean Corp. HGB Concentration 32.2 g/dL (32.0-36.0); Mean Corpuscular Hemoglobin 28.2 pg (27.0-33.0); Mean Corpuscular Volume 87.4 fL (80-95); Monocytes % 7.8; Neutrophils % 64.6; Platelet Count 311 x1000/uL (130-400); RBC 4.54 m/cumm (4.00-5.20); RBC Distribution Width 13.4 % (11.7-14.6); White Blood Cell Count 8.54 k/cumm (4.4-10.8)
[2019-02-05 22:11] LABS: Iron 55 ug/dL (50-175); Total Iron Binding Capacity 267 ug/dL (250-450); Transferrin Sat 21 % (15-50)
[2019-02-05 22:32] LABS: ALT 24 U/L (12-78); AST 15 U/L (15-37); Albumin 3.4 g/dL (3.4-5.0); Alkaline Phosphatase 98 U/L (46-116); Anion Gap 10.5 mmol/L (3-11); BUN 17 mg/dL (7-18); Bilirubin, Total 0.2 mg/dL (0.2-1.0); CO2 26.5 mmol/L (21.0-32.0); Calcium 9.2 mg/dL (8.5-10.1); Chloride 106 mmol/L (98-107); Ferritin 182 ng/mL (8-388); Glucose 97 mg/dL (70-100); Potassium 4.5 mmol/L (3.5-5.1); Sodium 143 mmol/L (136-145); Vitamin B12 649 pg/mL (193-986)
== END 2019-02-05 08:39 ==
LOC: NCHCN 08:19
PROVIDERS: PCP Family Medicine; Visit Provider Physician Assistant Medical
DX: I10 Essential (primary) hypertension (principal); D64.9 Anemia, unspecified
CPT/HCPCS: 80053; 82607; 82728; 83540; 83550; 85025

== ENCOUNTER 2019-04-17 09:20 | Outpatient (REF) | payer OTHER, SELFPAY ==
[2019-04-17 20:36] LABS: Hemoglobin A1C 6.3 % (4.5-6.2)
[2019-04-17 20:38] LABS: Anion Gap 9.2 mmol/L (3-11); BUN 22 mg/dL (7-18); CO2 31.8 mmol/L (21.0-32.0); CREATININE 0.79 mg/dL (0.55-1.02); Calcium 9.3 mg/dL (8.5-10.1); Calculated LDL 232 mg/dL; Chloride 101 mmol/L (98-107); Cholesterol 291 mg/dL (50-200); Glucose 109 mg/dL (70-100); HDL Cholesterol 40 mg/dL (40-60); Potassium 3.8 mmol/L (3.5-5.1); Sodium 142 mmol/L (136-145); Triglyceride 96 mg/dL (30-150)
== END 2019-04-17 09:40 ==
LOC: NCHCO 09:20
PROVIDERS: PCP Family Medicine; Visit Provider Physician Assistant Medical
DX: E78.5 Hyperlipidemia, unspecified (principal); I10 Essential (primary) hypertension; E11.9 Type 2 diabetes mellitus without complications; E03.9 Hypothyroidism, unspecified; E83.42 Hypomagnesemia
CPT/HCPCS: 80048; 80061; 83036; 83735; 84443

== ENCOUNTER 2019-10-08 02:14 | Outpatient (CLI) | payer MEDICARE, OTHER, SELFPAY ==
--- NOTE | 2019-10-08 07:39 | DI.US_ITS ---
APPROVED REPORT EXAM: Comprehensive 2D, Doppler, and color-flow Echocardiogram Patient Location: Out-Patient [employer] Manager: Sophie Curtis RDCS (AE) Indications: Systolic Heart Murmur Conclusion Left Ventricle : The left ventricle is normal size. The left ventricular systolic function is normal. The left ventricular ejection fraction is within the normal range. There is normal left ventricular wall thickness. There is normal LV segmental wall motion. The left ventricular diastolic function is normal. LVEF is 50-55%. Right Ventricle : The right ventricle is normal size. The right ventricular systolic function is norm al. Atria : The left atrium size is normal. The right atrium size is normal. Aortic Valve : Aortic valve is trileaflet. The Aortic valve is sclerotic. No aortic regurgitation is present. There is no aortic valvular stenosis. Mitral Valve : There is mitral annular calcification. Trace mitral regurgitation. No evidence of mitr al valve stenosis. Tricuspid Valve : The tricuspid valve is normal in structure. Moderate tricuspid regurgitation. There is no tricuspid valve stenosis. Great Vessels : IVC is normal in size and collapses >50% with inspiration. The RVSP is 28 mmHg. There is no prior echocardiogram available for comparison. Wall motion Left Ventricle The left ventricle is normal size. The left ventricular systolic function is normal. The left ventric ular ejection fraction is within the normal range. There is normal left ventricular wall thickness. T here is normal LV segmental wall motion. The left ventricular diastolic function is normal. There is no ventricular septal defect visualized. LVEF is 50-55%. Right Ventricle The right ventricle is normal size. The right ventricular systolic function is normal. Atria The left atrium size is normal. The right atrium size is normal. The interatrial septum is intact wit h no evidence for an atrial septal defect. Aortic Valve Aortic valve is trileaflet. The Aortic valve is sclerotic. There is no aortic valvular stenosis. No a ortic regurgitation is present. Mitral Valve There is mitral annular calcification. No evidence of mitral valve stenosis. Trace mitral regurgitati on. Tricuspid Valve The tricuspid valve is normal in structure. There is no tricuspid valve stenosis. Moderate tricuspid regurgitation. Pulmonic Valve The pulmonary valve is normal in structure. There is no pulmonic valvular stenosis. Trace pulmonic re gurgitation. Great Vessels The aortic root is normal in size. The ascending aorta is normal in size. Aortic arch is normal in ca liber. IVC is normal in size and collapses >50% with inspiration. The RVSP is 28 mmHg. Pericardium There is no pericardial effusion. There is no pleural effusion. 2D Dimensions IVSD d PLAX 0.76 cm F: 0.6-1.0 LV Vol A2C d MOD 73.3 mL LVPW d PLAX 0.83 cm F: 0.6 - 1.0 LV Vol A4C d MOD 61.0 mL LVID d PLAX 3.87 cm F: 3.8 - 5.2 LA vol/ BSA A2C s A-L 23.4 mL/m2 LVDs 2.55 cm F: 2.2 - 3.5 LA vol/ BSA A4C s A-L 18.1 mL/m2 Ao Root d 3.07 cm F: 2.7 - 3.3 LA Vol/ BSA Biplane s A-L 20.7 mL/m2 RA Area A4C 15.03 cm2 LA Area A4C s MOD 13.62 cm2 RA Vol/ BSA A4C s A-L 24.1 mL/m2 LA Area A2C s MOD 15.34 cm2 Ao Asc Diam d 3.15 cm F: 2.3 - 3.1 LV EF A4C MOD 52.8 % LV EF Teichholz 62.0 % LV EF A2C MOD 57.6 % LVEF (Root's) 54.76 % F: 54 - 74 LV EF Biplane MOD 54.8 % LV Volume 52.82 mL F: 46 - 106 LV Volume Index 29.67 mL/m2 F: 29 - 61 LV Vol Biplane MOD 67.7 mL FS 32.80 % M-Mode TAPSE 2.36 cm (M/F) <1.7 LV Diastology MV E' medial 0.060 (>0.07 m/s) E/A Ratio 0.8 LV E/e MED 11.35 (<14) MV E Vmax 0.69 (0.4-1.3 m/s) MV E' lateral 0.093 (>0.1 m/s) MV A Vmax 0.85 (0.4-1.3 m/s) LV E/e LAT 7.35 (<14) MV E/A Ratio 0.77 MV E/E' medial 11.39 MV E/E' lateral 7.39 Aortic Valve LVOT Area 2.29 cm2 AoV Area Vmax 1.86 cm2 LVOT Vmax 1.17 m/s AoV Area/ BSA (Vmax) 1.04 cm2/m2 LVOT Mean Александр. 0.72 m/s SAMMY Mean Александр. 1.66 cm2 LVOT Peak Grad 5.4 mmHg SAMMY Mean Александр. Index 0.93 cm2/m2 LVOT Mean Grad 2.5 mmHg LVOT VTI 0.251 m LVOT Diam s 1.70 cm (M/F) 1.5-2.5 AoV Vmax 1.43 (0.5-1.3 m/s) Velocity Ratio 0.81 AoV Mean Александр. 0.99 m/s AoV Peak Grad 8.2 mmHg LVOT SV 57.35 mL AoV Mean Grad 4.3 (<5 mmHg) AoV VTI 0.298 (0.18-0.25 m) AoV Area VTI 1.92 (2.5-4.5 cm2) AoV Area/ BSA (VTI) 1.08 cm/m2 Mitral Valve MV DT 251 (160-240 msec) MV PHT 73 msec MV Area PHT 3.02 cm2 MV VTI 0.298 m MV Area VTI 1.92 (4.0-6.0 cm2) Pulmonary Valve PV Vmax 1.06 (0.5-1.5 m/s) RVOT Peak Gr. 2.36 mmHg PV Peak Grad 4.5 mmHg RVOT Mean Gr. 1.00 mmHg PV Mean Grad 2.4 mmHg RVOT VTI 0.150 m PV VTI 0.214 m RVOT Vmax 0.77 m/s Tricuspid Valve TR Peak Grad 25.2 mmHg TR Vmax 2.51 m/s RA Pressure 3.00 mmHg RVSP (TR) 28.3 mmHg
== END 2019-10-08 02:34 ==
PROVIDERS: PCP Family Medicine; Visit Provider Family Medicine
DX: R01.1 Cardiac murmur, unspecified (principal); I35.8 Other nonrheumatic aortic valve disorders; I10 Essential (primary) hypertension
CPT/HCPCS: 93306

== ENCOUNTER 2020-05-12 09:57 | Outpatient (CLI) | payer MEDICARE, OTHER, SELFPAY ==
--- NOTE | 2020-05-12 | DI.RAD_ITS ---
EXAM: XR ANKLE RT COMPLETE CLINICAL HISTORY: RT ANKLE JT PAIN M25.571 TECHNIQUE: COMPARISON: CR XR FOOT RT COMPLETE from 05/12/2020 FINDINGS: Three views of the foot and three views of the ankle were obtained. The ankle mortise appears well m aintained with slight thinning of the tibiotalar cartilaginous joint space. There are moderate lakisha nal osteophytes of the tibiotalar and talofibular joints. There is an osteophyte at the site of zoltan chment Achilles tendon calcaneus. There are minimal degenerative changes of midfoot and forefoot yanira nts. There is a slight hallux valgus deformity. No other significant bony abnormality seen. IMPRESSION: Degenerative changes as described above. RADIATION DOSE DELIVERED: Total DLP
== END 2020-05-12 10:17 ==
PROVIDERS: PCP Family Medicine; Visit Provider Family Medicine
DX: M19.071 Primary osteoarthritis, right ankle and foot (principal)
CPT/HCPCS: 73610; 73630

== ENCOUNTER 2020-07-07 22:00 | Outpatient (REF) | payer MEDICARE, OTHER, SELFPAY ==
[2020-07-07 19:38] LABS: ALT 26 U/L (14-59); AST 18 U/L (15-37); Alkaline Phosphatase 107 U/L (46-116); Anion Gap 6.6 mmol/L (3-11); BUN 16 mg/dL (7-18); Bilirubin, Total 0.3 mg/dL (0.2-1.0); CO2 32.4 mmol/L (21.0-32.0); CREATININE 0.71 mg/dL (0.55-1.02); Calcium 9.6 mg/dL (8.5-10.1); Calculated LDL 248 mg/dL (<100); Chloride 100 mmol/L (98-107); Cholesterol 334 mg/dL (<200); Glucose 115 mg/dL (74-106); HDL Cholesterol 41 mg/dL (40-60); Sodium 139 mmol/L (136-145); TSH (W/Ref FT4) 1.96 uIU/mL (0.36-3.74); Total Protein 8.1 g/dL (6.4-8.2); Triglyceride 227 mg/dL (<150)
== END 2020-07-07 22:20 ==
LOC: NCHCN 22:00
PROVIDERS: PCP Family Medicine; Visit Provider Family Medicine
DX: E78.5 Hyperlipidemia, unspecified (principal); E11.9 Type 2 diabetes mellitus without complications; I10 Essential (primary) hypertension
CPT/HCPCS: 80053; 80061; 84443

== ENCOUNTER 2020-11-03 23:10 | Outpatient (REF) | payer MEDICARE, OTHER, SELFPAY | END 2020-11-03 23:11 | disposition home or self-care (01) | LOC: NCHCN 23:10 | PROVIDERS: PCP Family Medicine; Visit Provider Family Medicine | DX: E11.9 Type 2 diabetes mellitus without complications (principal); I10 Essential (primary) hypertension; E03.9 Hypothyroidism, unspecified; R78.5 Finding of other psychotropic drug in blood | CPT/HCPCS: 83036 ==

== ENCOUNTER → 2020-11-17 12:45 | Outpatient (BNVA) | payer MEDICARE, OTHER, SELFPAY | PROVIDERS: PCP Family Medicine; Referring Provider Family Medicine; Visit Provider Surgery | DX: Z12.11 Encounter for screening for malignant neoplasm of colon (principal); Z12.12 Encounter for screening for malignant neoplasm of rectum; Z86.010 Personal history of colon polyps ==

== ENCOUNTER 2020-12-16 07:23 | Day surgery (SDC) | payer MEDICARE, OTHER, SELFPAY ==
--- NOTE | 2020-12-16 06:46 | COLE_ITS ---
Date of service: 12/16/20 Time of Service: 08:59 Colonoscopy Report Date of procedure: 12/16/20 Pre-op diagnosis general: Colon Cancer screening for hx of polyps Post-op diagnosis procedure note: same (polyps, internal and external hemorrhoids) Procedure: Colonoscopy with polypectomy Surgeon: Madai Lynn Anesthesia Type: General:No Airway (ASA 2/Phil Laurent, YESSICA) Estimated blood loss (mL): 3 Pathology: other (descending colon and sigmoid colon) Complications: None Disposition: same day Indications: Vickie is back to see me today for a repeat colonoscopy. Her last colonoscopy was in 2015 and at that time she did not have any polyps. Her prep was suboptimal. She had tubular adenomas at her first colonoscopy. She also has noted some difficulty evacuating stool intermittently for the last year. She underwent a hysterectomy at the end of 2018. She tells me that sometimes she does have to disimpact herself and the stool is harder but then what is behind there is pretty liquid. She has not felt a mass. Colonoscopy risks, benefits and complications were reviewed with her again. We discussed doing mag citrate 2 days before the procedure and then the MiraLAX prep the day before. Risks, benefits and complications have been reviewed. Complications include but are not limited to bleeding, pain, perforation, missed small lesion/polyp, sore throat, aspiration and adverse reaction to the medications. Questions were entertained and answered to their satisfaction and they wished to proceed. No guarantees were given or implied. COVID-19 testing explained to the patient. Reason for test reviewed. Quarantine per state requirements reviewed with patient. Patient understands and agrees to testing. Proceed with colonoscopy under sedation Prep: Miralax/Dulcolax Procedure Start Time: :59 Procedure End Time: 09:25 Retraction Time: 17 minutes Findings: 2 small sessile polyps Grade 2 and 3 internal and external hemorrhoids Procedure Description: After informed consent was obtained the patient was taken to the procedure room and placed in a left decubitous position. Monitors were applied and a time out was done. The patients name, date of , procedure, allergies to medications and metal in their body was reviewed. The patient was then sedated. Once sedated and comfortable a rectal exam was done. External exam was normal. Internal exam revealed a normal sphincter tone and no palpable masses. The scope was then introduced and retro-flexed. Grade 2 and 3 internal and external hemorrhoids were noted. No polyps or masses were identified on retro- flexion. The scope was then advanced to the cecum with some difficulty due to a tortuous colon. The ileocecal vlave and appendiceal orifice were identified. The prep was good. The scope was then slowly retracted over 17 minutes back into the rectum. Polyps were removed with cold forceps in the descending colon and sigmoid colon. There was no diverticulosis noted. The scope was removed and the patient was woken up and taken back to Same day surgery in stable condition. The patient tolerated the procedure well and there were no immediate complications. Follow up: The patient should follow up in 5 years unless they develop changes in bowel habits or other new gastrointestinal complaints.
--- NOTE | 2020-12-16 06:47 | W.PM.DSUDISC ---
Discharge Plan Disposition Patient Disposition: HOME Condition: Good Discharge Details Reason For Visit: Colonoscopy Attending Provider: Madai Lynn Primary Care Provider: Maribel Blanc V Home Meds and New Rx's Prescriptions: Continued chlorthalidone 25 mg tablet 25 mg PO DAILY RF: 0 vitamin E (dl, acetate) 400 unit capsule 400 unit PO DAILY RF: 0 metformin 500 mg tablet 500 mg PO DAILY RF: 0 latanoprost 2.5 ML drops 1 drp Ophthalmic HS RF: 0 levothyroxine [Synthroid] 25 MCG tablet 0.025 mg PO TWO DAILY RF: 0 zinc gluconate 50 MG tablet 1 tab PO DAILY RF: 0 magnesium oxide 250 MG tablet 1 tab PO DAILY RF: 0 Super B Complex + C 150 MG tablet 150 mg PO DAILY RF: 0 cholecalciferol (vitamin D3) 1,000 UNIT tablet 1,000 unit PO TWO DAILY RF: 0 VITAMIN B6 100 mg PO DAILY RF: 0 irbesartan 150 mg tablet 225 mg PO DAILY RF: 0 turmeric 400 mg capsule 400 mg PO DAILY RF: 0 diclofenac sodium [Voltaren] 1 % gel 2 g topical QID RF: 0 ketoconazole 2 % cream 1 applic topical BID RF: 0 calcium carbonate [Tums] 200 mg calcium (500 mg) Tablet,Chewable 200 mg PO PRN PRNRF: 0 ketoconazole 2 % Cream 1 applic TOPICAL DAILY RF: 0 dorzolamide-timolol 22.3-6.8 mg/mL Drops 1 drp ophthalmic (eye) BID RF: 0 Discontinued bisacodyl [Dulcolax (bisacodyl)] 5 mg tablet,delayed release (DR/EC) 5 mg PO ONCE Qty: 4 RF: 0 polyethylene glycol 3350 17 gram powder in packet 255 g PO DAILY Qty: 15 RF: 0 magnesium citrate Solution 300 ml PO ONCE Qty: 296 RF: 0 Discharge Instructions Instructions: Colorectal Polyps (DC), Hemorrhoids (DC) Additional Instructions: Findings: 2 small sessile polyps Grade 2 and 3 internal and external hemorrhoids Follow up: 5 years Please call if you develop: fevers >101.5 Nausea or Vomiting Abdominal pain that is not transient Rectal bleeding that is more then a tbsp A hard abdomen and inability to pass gas DAY SURGERY UNIT POST ENDOSCOPY INSTRUCTIONS Instructions for everyone who is given Anesthesia: For your safety, please do the following for the next 24 Hours: a. Do not drive or operate dangerous equipment b. Do not drink alcohol beverages or use any recreational drugs for the first 24 hours or while taking pain medications. The medications in your body may have a reaction that can be dangerous. c. Do not make any important decisions or sign any important papers 1. Generally there are no restrictions on your activity after a day or so has gone by, but you may feel a bit fatigued for a few days. 2. After you arrive home you may have a light meal and return to a normal diet as you can tolerate it without feeling sick to your stomach. 3. After surgery, you may feel pain or discomfort. This should be only transient, but if it persists please contact your doctor. 4. If there are any questions regarding the findings of your procedure, please feel free to contact your doctor. 6. If you are unable to contact your doctor with a problem, contact the hospital at [phone]. 7. Continue all your regular medications unless directed otherwise. I understand the above instructions and have no questions. Signature of Patient or Responsible Adult Escort Date/Time Name of Responsible Adult Escort Signature of Nurse Date/Time Activity:: Activity as Tolerated Diet:: High Fiber diet Discharge Orders Discharge Orders: Discharge Order (Routine); Ordered 12/16/20 Ordered By: Madai Lynn
[2020-12-16 07:30] VITALS: BP 147/87; PULSE 76; RESP 18; TEMP 36.3; O2SAT 99
[2020-12-16] MEDS: Lactated Ringers 1,000 ML 80 ML IV (08:01)
--- NOTE | 2020-12-16 08:03 | W.ANESPRE ---
General Info Date of Service Date Performed: 12/16/20 Height: 5 ft 1 in Weight: 80.7 kg Body Mass Index (BMI): 33.6 Surgical Procedure: Operation Date: 12/16/20 09:50 Proposed Procedures Side Surgeon li Lynn MD Meds Allergies and Home Medications Allergies Allergy/AdvReac Type Severity Reaction Status Date / Time hydrochlorothiazide Allergy Severe Swelling/Ed Verified 12/16/20 07:37 peggy simvastatin AdvReac Intermediate Very sleepy Unverified 12/16/20 07:37 Home Medication Medication Instructions Recorded Super B Complex + C 150 mg PO DAILY 08/05/13 Vitamin B6 100 mg PO DAILY 08/05/13 cholecalciferol (vitamin D3) 1,000 unit PO TWO DAILY 08/05/13 latanoprost 1 drp OPHTHALMIC HS drp 08/05/13 levothyroxine [Synthroid] 0.025 mg PO TWO DAILY tab-cap 08/05/13 magnesium oxide 1 tab PO DAILY 08/05/13 zinc gluconate 1 tab PO DAILY 08/05/13 vitamin E (dl, acetate) 400 unit 400 unit PO DAILY 07/24/18 capsule dorzolamide-timolol 1 drp OPHTHALMIC (EYE) BID 08/22/18 metformin 500 mg tablet 500 mg PO DAILY tab 10/10/18 calcium carbonate [Tums] 200 mg PO PRN PRN 10/23/18 ketoconazole 1 applic TOPICAL DAILY 10/23/18 chlorthalidone 25 mg tablet 25 mg PO DAILY 02/12/19 diclofenac sodium 1 % topical gel 2 g TOPICAL QID 11/06/20 irbesartan 150 mg tablet 225 mg PO DAILY tab 11/06/20 ketoconazole 2 % topical cream 1 applic TOPICAL BID 11/06/20 turmeric 400 mg capsule 400 mg PO DAILY 11/06/20 bisacodyl 5 mg tablet,delayed 5 mg PO ONCE #4 tab 11/17/20 release magnesium citrate 300 ml PO ONCE #296 ml 11/17/20 polyethylene glycol 3350 17 gram 255 g PO DAILY #15 ea 11/17/20 oral powder packet Current Visit Medications: Current Medications Generic Name Dose Route Start Last Admin Trade Name Freq PRN Reason Stop Dose Admin Hyoscyamine Sulfate 0.125 mg 12/16/20 06:48 Hyoscyamine 0.125 Mg Sl/Oral/Chew SL DIRECTED PRN Ringer's Solution 1,000 mls @ 80 mls/hr 12/16/20 06:00 12/16/20 08:01 IV 01/14/21 23:59 80 mls/hr INFUSION RAPHAEL Administration IV Miscellaneous Supplies 1 each 12/16/20 06:00 Iv Access IV 01/14/21 23:59 DIRECTED RAPHAEL Ondansetron HCl 4 mg 12/16/20 06:48 Ondansetron 4 Mg/2 Ml Vial IVP Q4H PRN PRN Nausea / Vomiting Sodium Chloride 0 ml 12/16/20 06:00 Normal Saline Flush 10 Ml Syr IV 01/14/21 23:59 PRN PRN Sodium Chloride 0 ml 12/16/20 06:00 Normal Saline 10 Ml Vial IJ 01/14/21 23:59 DIRECTED PRN Sterile Water 0 ml 12/16/20 06:00 Water,Injection,Sterile 10 Ml Vial IJ 01/14/21 23:59 DIRECTED PRN PFSH Active Problems Active Problems: Problem Status Onset Code Diabetes type 2, controlled E11.9 Hypomagnesemia E83.42 Heart murmur, systolic R01.1 Trochanteric bursitis of both hips M70.61, M70.62 Change in bowel habit R19.4 H/O bilateral salpingo-oophorectomy Z90.79, Z90.722 S/P vaginal hysterectomy Z90.710 Migraine with aura 08/06/13 G43.109 Sleep apnea G47.30 Hypothyroidism E03.9 Depressive disorder F32.9 Obesity E66.9 Hypertension I10 Glaucoma H40.9 Hyperlipemia E78.5 S/P tubal ligation Z98.51 S/P arthroscopic surgery of left knee Z98.890 Medical History Medical History Achilles tendinitis Basal cell carcinoma of anterior chest Depressive disorder Diabetes mellitus Dry skin Elbow pain, right Foot pain, left Glaucoma Headache Headache, post-traumatic History of closed head injury History of hysteroscopy History of positive PPD Hyperlipemia Hypertension Hypothyroidism Impaired fasting glucose Obesity Postmenopausal bleeding Shoulder pain, right Skin lesion Sleep apnea Does not use devices Tubulovillous adenoma of colon Wrist pain, left Surgical History Surgical History H/O excision of ganglion cyst R wrist History of colonoscopy History of colposcopy History of mandibular surgery Left jaw History of shoulder surgery R rotator cuff Hx of dilation and curettage Hx of eye surgery Left eye macular pucker Hx of thumb surgery Left w/titanium joint S/P arthroscopic surgery of left knee S/P tubal ligation Tobacco Smoking/Tobacco Use Status: Never Alcohol Alcohol Intake: current Alcohol intake frequency: a few times a month Alcohol type: wine Substance Use Substance use: Never Substance use type: does not use Vital Signs and Lab Results Vital Signs Most Recent Vital Signs in EMR: Most Recent Vital Signs Temp Pulse Resp BP Pulse Ox 36.3 C L 76 18 147/87 H 99 12/16/20 07:30 12/16/20 07:30 12/16/20 07:30 12/16/20 07:30 12/16/20 07:30 Lab Results Blood Type / Crossmatch: No Data to Display Complete Blood Count: No Data to Display Complete Metabolic Panel: No Data to Display Liver Function Panel: No Data to Display Coagulation Panel: No Data to Display Cardiac Panel: No Data to Display Arterial Blood Gas: No Data to Display Venous Blood Gas: No Data to Display Pancreas Panel: No Data to Display Thyroid Panel: No Data to Display Infectious Disease: No Data to Display Blood Cultures: No Data to Display Toxicology Panel: No Data to Display Imaging and Studies Imaging and Studies Echocardiogram Summary: Admission Date: 10/08/19 : 1945 Age: 73 Indications: Systolic Heart Murmur Conclusion Left Ventricle : The left ventricle is normal size. The left ventricular systolic function is normal. The left ventricular ejection fraction is within the normal range. There is normal left ventricular wall thickness. There is normal LV segmental wall motion. The left ventricular diastolic function is normal. LVEF is 50-55%. Right Ventricle : The right ventricle is normal size. The right ventricular systolic function is normal. Atria : The left atrium size is normal. The right atrium size is normal. Aortic Valve : Aortic valve is trileaflet. The Aortic valve is sclerotic. No aortic regurgitation is present. There is no aortic valvular stenosis. Mitral Valve : There is mitral annular calcification. Trace mitral regurgitation. No evidence of mitral valve stenosis. Tricuspid Valve : The tricuspid valve is normal in structure. Moderate tricuspid regurgitation. There is no tricuspid valve stenosis. Great Vessels : IVC is normal in size and collapses >50% with inspiration. The RVSP is 28 mmHg. There is no prior echocardiogram available for comparison. Carotid Artery Summary:: 02/12/13 SYMPTOMS/DIAGNOSIS: HTN UNCONTROLLED, FH STROKE, 401.9 CAROTID ULTRASOUND: Only a small amount of plaque is seen. There is a proximal to mid right external carotid artery stenosis. No left external carotid artery stenosis is identified. There is no evidence of internal carotid artery stenosis. Antegrade flow is noted in the vertebrals. SUMMARY: No evidence of significant carotid stenosis. Note is made of stenosis of the right external carotid artery. Anesthesia Assessment and Plan Anesthesia History Personal History: No History of Anesthesia Complications Family History: No Family History of Anesthesia Complications Exercise Tolerance Exercise Tolerance: Metabolic Equivalents>4 Pertinent Negatives Pertinent Negatives: No Symptoms of GERD Cardiac & Pulmonary Exam Cardiac Exam: Normal S1/S2 Heart Sounds Pulmonary Exam: Clear Bilateral Breath Sounds Airway Exam Known Difficult Airway: No Mallampati Class: 2 Mouth Opening: Normal (> 3cm) Thyromental Distance: Greater than 3 cm Neck Range of Motion: Full ROM Neck Circumference: Normal Teeth Condition: Normal Dentition and Removable Dentures/Plates Upper ASA Classification ASA Score: ASA 2 Emergency Case?: No NPO Status NPO Status: NPO Clears >2 hours, Solids >8 hours Anesthesia Plan Resuscitation Status: Full Code Anesthesia Technique: General Anesthesia Airway Planned: Natural Airway Monitors Used: Standard Monitors
[2020-12-16 08:28] VITALS: BMI 33.6
--- NOTE | 2020-12-16 09:20 | BOWEL_PTH ---
PATIENT: SavDecember LOC: [facility] U#:[id number] AGE/SX: 74/F ROOM: RE12/16/[address]: Madai Lynn MD : 1945 BED: DIS: 12/16/2020 SPEC #: [id number] RECD: 12/16/20 12:29 STATUS: EDINSON RAE #: [id number] REAL: 12/16/20 09:[address]: Madai Lynn DEPT: Surgical Specimen RECD BY: Katiuska Mustafa ENTERED: 12/16/20 12:31 SP TYPE: Bowel OTHR DR: Maribel Blanc V Tissues: 1 - BIOPSY BOWEL 2 - BIOPSY BOWEL Procedures: GROSS AND MICRO LEVEL 4 Comments: [id number]
[2020-12-16 09:30] VITALS: BP 121/67; PULSE 66; RESP 16; TEMP 36.3; O2SAT 95
--- NOTE | 2020-12-16 09:31 | W.ANESPOSTOP ---
Postoperative Evaluation Date, Time and Location Date Performed: 12/16/20 Time Performed: 09:31 Patient Location: Day Surgery Unit Vital Signs Most Recent Imported Vital Signs: Most Recent Vital Signs Temp Pulse Resp BP Pulse Ox 36.3 C L 76 18 147/87 H 99 12/16/20 07:30 12/16/20 07:30 12/16/20 07:30 12/16/20 07:30 12/16/20 07:30 Most Recent Manually Entered Vital Signs: Adult Blood Pressure: 121/67 Heart Rate: 66 Respirations: 16 Oxygen Saturation (%): 95 Temperature (C): 36.3 C Pain Score (0-10 Scale): 0 Assessment Mental Status: Awake (Alert & Oriented to Patient Baseline) Airway and Respiratory Function: Patent airway with normal (patient baseline) respiratory exam Cardiovascular Function: Hemodynamically Stable Hydration Status: Adequately Hydrated Nausea & Vomiting: No Nausea or Vomiting Pain: Pt. Denies Any Pain Peripheral Nerve Block: Patient did not receive a nerve block
[2020-12-16 09:32] VITALS: BP 121/67; PULSE 66; RESP 16; TEMPC 36.3; O2SAT 95
[2020-12-16 09:57] VITALS: BP 132/72; PULSE 70; RESP 18; TEMP 36; O2SAT 96
== END 2020-12-16 10:10 | disposition home or self-care (01) ==
PROVIDERS: PCP Family Medicine; Visit Provider Surgery
PROC: 0DJD8ZZ Inspection of Lower Intestinal Tract, Via Natural or Artificial Opening Endoscopic (ICD-10-PCS; CPT 45378; principal; 2020-12-16 09:45)
DX: Z12.11 Encounter for screening for malignant neoplasm of colon (principal); K63.5 Polyp of colon; K64.1 Second degree hemorrhoids; K64.3 Fourth degree hemorrhoids
CPT/HCPCS: 45380; 88305; J2001

== ENCOUNTER 2021-04-13 13:51 | Outpatient (CLI) | payer MEDICARE, SELFPAY ==
--- NOTE | 2021-04-13 | DI.RAD_ITS ---
Exam(s) XR KNEE RT 3V AP,LAT,JESSICA EXAM: XR KNEE RT 3V AP,LAT,JESSICA CLINICAL HISTORY: RT KNEE PAIN, M25.561. TECHNIQUE: 2D digital imaging was performed of the right knee. Three views obtained. AP, lateral an d PA tunnel views were obtained. COMPARISON: CR CHEST 2 VIEWS PA,LAT from 04/06/2011 FINDINGS: BONES: No acute fracture is present. No bony destructive lesion is seen. There is an enthesophyte at the superior patella. JOINTS: The knee is normally aligned. No joint effusion is seen. SOFT TISSUE: Normal. IMPRESSION: Unremarkable radiographs of the right knee. DATA REPOSITORY: RADIATION DOSE DELIVERED:
== END 2021-04-13 14:11 ==
PROVIDERS: PCP Family Medicine; Visit Provider Family Medicine
DX: M25.561 Pain in right knee (principal)
CPT/HCPCS: 73562

== ENCOUNTER 2021-05-18 01:42 | Outpatient (CLI) | payer MEDICARE, SELFPAY ==
--- NOTE | 2021-05-18 11:00 | DI.US_ITS ---
Exam(s) US SOFT TISSUE EXTREMITY EXAM: US SOFT TISSUE EXTREMITY CLINICAL HISTORY: RT KNEE PAIN, M25.561,? BAKERS CYST TECHNIQUE: Ultrasound performed using standard protocol. COMPARISON: US US ECHOCARDIOGRAM from 10/08/2019 FINDINGS: Ultrasound examination of the popliteal region on the right was performed to evaluate clinically susp ected Suazo's cyst. No Suazo's cyst or solid mass identified. If there is a high clinical suspicion of mass additional evaluation with MR may be considered. IMPRESSION: DATA REPOSITORY:
== END 2021-05-18 02:02 ==
PROVIDERS: PCP Family Medicine; Visit Provider Family Medicine
DX: M25.561 Pain in right knee (principal)
CPT/HCPCS: 76881

== ENCOUNTER 2021-08-17 22:11 | Outpatient (REF) | payer MEDICARE, SELFPAY ==
[2021-08-17 21:04] LABS: Hemoglobin A1C 6.7 % (<5.7)
[2021-08-17 21:11] LABS: Anion Gap 9.4 mmol/L (3-11); BUN 23 mg/dL (7-18); CO2 29.6 mmol/L (21.0-32.0); CREATININE 0.7 mg/dL (0.55-1.02); Calcium 9.3 mg/dL (8.5-10.1); Chloride 101 mmol/L (98-107); Glucose 101 mg/dL (74-106); Potassium 3.7 mmol/L (3.5-5.1); Sodium 140 mmol/L (136-145); TSH (W/Ref FT4) 2.03 uIU/mL (0.36-3.74)
== END 2021-08-17 22:12 | disposition home or self-care (01) ==
LOC: NCHCN 22:11
PROVIDERS: PCP Family Medicine; Visit Provider Family Medicine
DX: E03.9 Hypothyroidism, unspecified (principal); E11.9 Type 2 diabetes mellitus without complications; I10 Essential (primary) hypertension
CPT/HCPCS: 80048; 83036; 84443

== ENCOUNTER 2021-09-01 02:00 | Outpatient (CLI) | payer MEDICARE, SELFPAY ==
--- NOTE | 2021-09-01 16:30 | DI.DEXA_ITS ---
Exam(s) XR DEXA BONE DENSITY W/WO KERRY EXAM: XR DEXA BONE DENSITY W/WO KERRY CLINICAL HISTORY: ASYMPTOMATIC POSTMENOPAUSAL STATUS, Z78.0 TECHNIQUE: COMPARISON: No exams were available for comparison FINDINGS: Lateral Spine Image: Unremarkable. No compression deformities identified. Left hip: Total T-Score: -0.6. Total Z-Score: 1.1 T- and Z-scores: Overall, within normal limits. There is osteopenia in the femoral neck with a T-sco re of -1.6. Lumbar Spine: Total T-Score: 0.3 Total Z-Score: 2.6 T- and Z-scores: Within normal limits. IMPRESSION: No evidence of osteoporosis.
== END 2021-09-01 02:20 ==
PROVIDERS: PCP Family Medicine; Visit Provider Family Medicine
DX: Z78.0 Asymptomatic menopausal state (principal); Z13.820 Encounter for screening for osteoporosis; M85.88 Other specified disorders of bone density and structure, other site
CPT/HCPCS: 77080

== ENCOUNTER → 2022-05-18 02:39 | Outpatient (CLI) | payer OTHER, SELFPAY ==
--- NOTE | 2022-05-18 08:19 | DI.RAD_ITS ---
Exam(s) XR SHOULDER RT COMPLETE 2+V EXAM: XR SHOULDER RT COMPLETE 2+V CLINICAL HISTORY: RT SHOULDER PAIN M25.511. TECHNIQUE: 2D digital imaging was performed. Five views. COMPARISON: No exams were available for comparison FINDINGS: BONES: No acute fracture is present. No bony destructive lesion is seen. JOINTS: No dislocation present. There is widening of the AC joint which appears postsurgical, consis tent with prior distal clavicular resection. There is mild spurring at the rim of the glenoid. SOFT TISSUE: Small calcification is seen adjacent to the humeral head which could indicate calcific t endinosis. IMPRESSION: Mild degenerative changes and calcific tendinosis. DATA REPOSITORY: RADIATION DOSE DELIVERED:
== END ==
PROVIDERS: PCP Family Medicine; Visit Provider Family Medicine
DX: M75.31 Calcific tendinitis of right shoulder (principal); M19.011 Primary osteoarthritis, right shoulder
CPT/HCPCS: 73030

== ENCOUNTER 2022-08-30 16:35 | Outpatient (REF) | payer OTHER, SELFPAY ==
[2022-08-30 16:13] LABS: Anion Gap 6.9 mmol/L (3-11); BUN 20 mg/dL (7-18); CO2 30.1 mmol/L (21.0-32.0); CREATININE 0.8 mg/dL (0.55-1.02); Calcium 9.9 mg/dL (8.5-10.1); Calculated LDL 178 mg/dL (<100); Chloride 103 mmol/L (98-107); Cholesterol 287 mg/dL (<200); Estimated GFR 77.27 (mL/min/1.73m2); Glucose 125 mg/dL (74-106); HDL Cholesterol 39 mg/dL (40-60); Potassium 3.7 mmol/L (3.5-5.1); Sodium 140 mmol/L (136-145); Triglyceride 354 mg/dL (<150)
== END 2022-08-30 16:36 | disposition home or self-care (01) ==
LOC: NCHCN 16:35
PROVIDERS: PCP Family Medicine; Visit Provider Family Medicine
DX: E03.9 Hypothyroidism, unspecified (principal); I10 Essential (primary) hypertension; E78.5 Hyperlipidemia, unspecified
CPT/HCPCS: 80048; 80061; 84443

== ENCOUNTER 2022-12-07 10:48 | Outpatient (REF) | payer OTHER, SELFPAY ==
[2022-12-07 16:14] LABS: Hemoglobin A1C 6.5 % (<5.7)
[2022-12-07 16:24] LABS: Calculated LDL 206 mg/dL (<100); Cholesterol 289 mg/dL (<200); HDL Cholesterol 40 mg/dL (40-60); Triglyceride 219 mg/dL (<150)
== END 2022-12-07 10:49 | disposition home or self-care (01) ==
LOC: NCHCN 10:48
PROVIDERS: PCP Family Medicine; Visit Provider Nurse Practitioner Family
DX: E11.9 Type 2 diabetes mellitus without complications (principal); E78.5 Hyperlipidemia, unspecified
CPT/HCPCS: 80061; 83036

== ENCOUNTER → 2023-05-12 00:28 | Outpatient (CLI) | payer OTHER, SELFPAY ==
--- NOTE | 2023-05-12 07:35 | DI.RAD_ITS ---
Exam(s) XR FOOT LT COMPLETE EXAM: XR FOOT LT COMPLETE CLINICAL HISTORY: LT FOOT AND LAT TOE PAIN, M79.672. TECHNIQUE: 2D digital imaging was performed. Three views. COMPARISON: None FINDINGS: BONES: No acute fracture is present. No bony destructive lesion is seen. Prior 1st metatarsal osteoto my with pin in place. Enthesophyte at Achilles insertion. JOINTS: No dislocation present. SOFT TISSUE: Normal. Severe degenerative changes 1st MTP joint. There is periarticular spurring an d obliteration of the joint space. Minimal degenerative changes elsewhere. No hallux valgus. 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 DATA REPOSITORY: RADIATION DOSE DELIVERED:
== END ==
PROVIDERS: PCP Family Medicine; Visit Provider Family Medicine
DX: M19.071 Primary osteoarthritis, right ankle and foot (principal)
CPT/HCPCS: 73630

== ENCOUNTER 2023-06-13 16:17 | Outpatient (REF) | payer OTHER, SELFPAY ==
[2023-06-13 19:17] LABS: Hemoglobin A1C 6.1 % (<5.7)
[2023-06-13 19:30] LABS: Calculated LDL 235 mg/dL (<100); Cholesterol 322 mg/dL (<200); HDL Cholesterol 43 mg/dL (40-60); TSH (W/Ref FT4) 2.61 uIU/mL (0.36-3.74); Triglyceride 223 mg/dL (<150)
== END 2023-06-13 16:18 | disposition home or self-care (01) ==
LOC: NCHCN 16:17
PROVIDERS: PCP Family Medicine; Visit Provider Family Medicine
DX: E11.9 Type 2 diabetes mellitus without complications (principal)
CPT/HCPCS: 80061; 83036; 84443

== ENCOUNTER 2024-02-17 17:37 | Emergency (ER) | payer OTHER, SELFPAY ==
[2024-02-17] VITALS (13 sets, daily range): BP systolic 146–185; BP diastolic 66–90; PULSE 75–85; RESP 14; TEMP 36.3; O2SAT 92–97
[2024-02-17 19:46] LABS: Abs Immature Grans 0.03 10^3/uL (0.0-0.06); Absolute Basophil Count 0.04 10^3/uL (0.0-0.2); Absolute Eosinophil Count 0.24 10^3/uL (0.0-0.7); Absolute Lymphocyte Count 2.21 10^3/uL (1.2-3.4); Absolute Monocyte Count 0.99 10^3/uL (0.1-0.8); Absolute Neutrophil Count 5.05 10^3/uL (1.2-6.7); Basophils % 0.5 %; Eosinophils % 2.8 %; HCT 43.2 % (36.0-46.0); HGB 14.2 g/dL (11.2-15.7); Immature Grans % 0.4 %; Lymphocytes % 25.8 %; MCH 28.9 pg (27.0-33.0); MCHC 32.9 % (32.0-36.0); MCV 88 fL (80-95); MPV 9.9 fL (8.0-11.0); Monocytes % 11.6 %; Neutrophils % 58.9 %; Platelet Count 309 10^3/uL (130-400); RBC 4.91 10^6/uL (3.93-5.22); RDW 12.7 % (11.7-14.6); RDW-SD 40.8 fL; WBC 8.56 10^3/uL (4.4-10.8)
[2024-02-17] MEDS: predniSONE 20 MG TAB 80 MG PO (19:51)
[2024-02-17 20:06] LABS: ALT 32 U/L (14-59); AST 27 U/L (15-37); Alkaline Phosphatase 102 U/L (46-116); Anion Gap 7.1 mmol/L (3-11); BUN 15 mg/dL (7-18); Bilirubin, Total 0.43 mg/dL (0.2-1.0); CO2 30.9 mmol/L (21.0-32.0); CREATININE 0.9 mg/dL (0.55-1.02); Calcium 9.8 mg/dL (8.5-10.1); Chloride 100 mmol/L (98-107); Estimated GFR 66.26 (mL/min/1.73m2); Glucose 106 mg/dL (74-106); Potassium 3.3 mmol/L (3.5-5.1); Sodium 138 mmol/L (136-145)
[2024-02-17] MEDS: Potassium Chloride 20 MEQ TABCR 40 MEQ PO (20:15)
--- NOTE | 2024-02-17 20:48 | W.ED.GENAD ---
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) Primary Care Provider: Maribel Blanc V ED Provider: Katiuska Sosa Home Meds and New Rx's Prescriptions: New prednisone 20 mg tablet 80 mg PO ONCE Qty: 16 0RF Rx Instructions: take 80 mg daily for 4 additional days valacyclovir [Valtrex] 1 gram tablet 1,000 mg PO TID Qty: 9 0RF No Action chlorthalidone 25 mg tablet 25 mg PO DAILY latanoprost 2.5 ML drops 1 drp Ophthalmic HS irbesartan 150 mg tablet 225 mg PO DAILY levothyroxine [Synthroid] 25 mcg tablet 37.5 mcg PO DAILY metformin 500 mg tablet 500 mg PO BID Centrum Silver Women 8 mg iron-400 mcg-50 mcg tablet 1 tab PO DAILY dorzolamide-timolol 22.3-6.8 mg/mL Drops 1 drp ophthalmic (eye) BID Discharge Instructions Instructions: Shingles Additional Instructions: I suspect you have [place] Wiggins syndrome, please be reassessed in 1 week with your doctor Take the Valtrex for 10 days Take the prednisone for a total of 5 days you received the first dose in the emergency department Use lubricating drops to your right eye or keep it covered Please return with headache, fever, confusion, or should you have any new or worsening complaints You are contagious until all the lesions in your ear crusted over, stay away from elderly, immunosuppressed, or individuals Please read all the enclosed information regarding transmission of shingles Referrals: Maribel Blanc MD [Primary Care Provider] - HPI General Date/Time Provider Initiated Documentation: 02/17/24 17:56. HPI Narrative: This 78-year-old female presents with report of persistent facial paralysis with vesicles in her right ear. She was evaluated yesterday at [facility] and appropriately started on Valtrex out of concern for shingles. She started having some right-sided facial paralysis at that time. She is concerned today because her symptoms have not improved despite taking the Valtrex and Augmentin. She denies any fever chills or any current headache or strength or sensation changes distally. She denies any trouble swallowing or any central neurological symptoms. Denies any trauma or known tick bites. Denies any vision change. Denies any dizziness or confusion. Related Data Home Medications ?Medication ?Instructions ?Recorded ?Confirmed latanoprost 0.005 % eye drops 1 drp ophthalmic (eye) HS 08/05/13 12/13/23 dorzolamide 22.3 mg-timolol 6.8 1 drp ophthalmic (eye) BID 08/22/18 12/13/23 mg/mL eye drops chlorthalidone 25 mg tablet 25 mg PO DAILY 02/12/19 12/13/23 irbesartan 150 mg tablet 225 mg PO DAILY 11/06/20 12/13/23 levothyroxine 25 mcg tablet 37.5 mcg PO DAILY 11/02/23 12/13/23 (Synthroid) metformin 500 mg tablet 500 mg PO BID 11/02/23 12/13/23 knmhacrl-xwbi-nqaf 8 mg-folic 400 1 tab PO DAILY 11/02/23 12/13/23 mcg-K 50 mcg-lutein 300 mcg tablet (Centrum Silver Women) prednisone 20 mg tablet 80 mg (4 x 20 mg) PO ONCE #16 tabs 02/17/24 valacyclovir 1 gram tablet 1,000 mg PO TID #9 tabs 02/17/24 (Valtrex) Previous Rx's ?Medication ?Instructions ?Recorded prednisone 20 mg tablet 80 mg (4 x 20 mg) PO ONCE #16 tabs 02/17/24 valacyclovir 1 gram tablet 1,000 mg PO TID #9 tabs 02/17/24 (Valtrex) Allergies Allergy/AdvReac Type Severity Reaction Status Date / Time hydrochlorothiazide Allergy Severe Swelling/Ed Verified 12/13/23 13:53 peggy lisinopril Allergy Severe angioedema Unverified 12/13/23 13:53 simvastatin AdvReac Intermediate Very Unverified 12/13/23 13:53 sleepy, depression General Stated Complaint: FacialProb ALESSANDRO: 3 Exam Narrative Exam Narrative: Alert and oriented 78-year-old female in no acute distress, cranial nerve VII palsy on assessment, uvula midline, oropharynx patent, no intraoral lesions, lesions noted to right external auditory canal and auricle, no evidence of ophthalmology call involvement, no injection or eye pain. No evidence of nasal involvement. Ambulatory with steady gait, negative affaao-jxmk-yvqmeo, negative heel rodriguez, ambulatory with steady gait. Pupils equal round reactive to light and accommodation no additional rashes or lesions noted Course Vital Signs Vital signs: Vital Signs Temperature 36.3 C L 02/17/24 17:42 Pulse 85 02/17/24 17:42 Respiratory Rate 14 02/17/24 17:42 Blood Pressure 172/90 H 02/17/24 17:42 Pulse Oximetry 97 02/17/24 17:42 Temperature 36.3 C L 02/17/24 20:20 Temperature Source Tympanic 02/17/24 20:20 Pulse 75 02/17/24 20:20 Respiratory Rate 14 02/17/24 20:20 Respiratory Effort Normal 02/17/24 20:20 Blood Pressure 146/73 H 02/17/24 20:20 Blood Pressure Mean 92 02/17/24 20:01 Pulse Oximetry 96 02/17/24 20:20 Oxygen Delivery Method Room Air 02/17/24 20:20 Oxygen Flow Rate 0 02/17/24 17:42 Pain Level 0 02/17/24 20:20 Lab/Test Results Lab/Test Results: Laboratory Tests Range/Units 02/17/24 02/17/24 19:20 19:37 WBC (4.4-10.8) 10^3/uL 8.56 RBC (3.93-5.22) 10^6/uL 4.91 Hgb (11.2-15.7) g/dL 14.2 Hct (36.0-46.0) % 43.2 MCV (80-95) fL 88 MCH (27.0-33.0) pg 28.9 MCHC (32.0-36.0) % 32.9 RDW (11.7-14.6) % 12.7 Plt Count (130-400) 10^3/uL 309 MPV (8.0-11.0) fL 9.9 Immature Gran % % 0.4 Neutrophils % % 58.9 Lymphocytes % % 25.8 Monocytes % % 11.6 Eosinophils % % 2.8 Basophils % % 0.5 Nucleated RBC % (0.0-0.3) % 0.0 Absolute Neutrophils (1.2-6.7) 10^3/uL 5.05 Absolute Lymphocytes (1.2-3.4) 10^3/uL 2.21 Absolute Monocytes (0.1-0.8) 10^3/uL 0.99 H Absolute Eosinophils (0.0-0.7) 10^3/uL 0.24 Absolute Basophils (0.0-0.2) 10^3/uL 0.04 Sodium (136-145) mmol/L 138 Potassium (3.5-5.1) mmol/L 3.3 L Chloride (98-107) mmol/L 100 Carbon Dioxide (21.0-32.0) mmol/L 30.9 Anion Gap (3-11) mmol/L 7.1 BUN (7-18) mg/dL 15 Creatinine (0.55-1.02) mg/dL 0.9 Est GFR (CKD-EPI 2020) (mL/min/1.73m2) 66.26 Glucose (74-106) mg/dL 106 Calcium (8.5-10.1) mg/dL 9.8 Total Bilirubin (0.2-1.0) mg/dL 0.43 AST (15-37) U/L 27 ALT (14-59) U/L 32 Alkaline Phosphatase (46-116) U/L 102 Total Protein (6.4-8.2) g/dL 9.0 H Albumin (3.4-5.0) g/dL 4.0 VZV Specimen Descript Cancelled VZV DNA (PCR) Cancelled Medical Decision Making 78-year-old female presenting with likely [place] Wiggins syndrome. Will add prednisone to patient's regimen, she is already on Valtrex and will extend her Valtrex from 7 to 10 days. Precautions reviewed in detail. No evidence of central process, suspect peripheral, no indication for LP, no central neurological signs or symptoms appreciated. Patient is aware that starting on prednisone will likely increase her blood sugars and she is a diabetic. Will place her on prednisone 80 mg or 1 mg/kg for the next 5 days. She will need close outpatient follow-up and will continue supportive care for her right thigh. Return precautions reviewed and patient expressed understanding, discharged home in stable condition with stable vitals no indication for CT imaging at this time no evidence of central process clinically diagnostic labs do not show significant acute abnormality aside from mild hypokalemia 3.2 which was supplemented 4 mEq of potassium in the emergency department Quality:SDOH Health Related Social Needs: No Data to Display PFSH All Active Problems (Updated 11/02/23 @ 12:44 by Angela Smith RN) [place] Wiggins syndrome (geniculate herpes zoster) (Acute) Hearing loss (Acute) Otalgia, left ear (Acute) Colon polyp, hyperplastic (Acute ~12/2020) Diabetes type 2, controlled (Acute) Hypomagnesemia (Acute) Heart murmur, systolic (Acute) Trochanteric bursitis of both hips (Acute) Change in bowel habit (Acute) H/O bilateral salpingo-oophorectomy (Acute) S/P vaginal hysterectomy (Acute) Migraine with aura (Acute 08/06/13) Sleep apnea (Acute) Does not use devices Hypothyroidism (Chronic) Depressive disorder (Acute) Obesity (Chronic) Hypertension (Chronic) Glaucoma (Chronic) Hyperlipemia (Acute) S/P tubal ligation (Acute) S/P arthroscopic surgery of left knee (Acute) Medical History (Updated 02/17/24 @ 20:07 by JENNY Michel) Noninflammatory disorder of vagina H/O traumatic brain injury Pain in toe Seborrheic dermatitis Benign neoplasm of colon Basal cell carcinoma of truncal skin Diabetes mellitus Tubulovillous adenoma of colon Impaired fasting glucose History of positive PPD Achilles tendinitis Shoulder pain, right Skin lesion Basal cell carcinoma of anterior chest Dry skin Wrist pain, left Elbow pain, right Headache Headache, post-traumatic History of closed head injury Foot pain, left Postmenopausal bleeding Surgical History (Updated 11/02/23 @ 12:44 by Angela Smith RN) H/O arthroscopy of left knee H/O tubal ligation Acquired absence of both cervix and uterus History of mandibular surgery Left jaw Hx of eye surgery Left eye macular pucker Hx of thumb surgery Left w/titanium joint History of hysteroscopy Hx of dilation and curettage History of shoulder surgery R rotator cuff History of colonoscopy (~12/2020) History of colposcopy H/O excision of ganglion cyst R wrist Family History (Updated 11/02/23 @ 12:49 by Angela Smith RN) Father Cerebral hemorrhage Cancer stomach Stroke Sister Heart disease Hypertension Stroke Osteoporosis Thyroid disorder Son , early 50's. ? pancreatic disease & heart disease Heart disease Daughter Graves disease Hypertension Mother , 88 Diabetes Osteoporosis Hypertension Thyroid disorder Sister Fibromyalgia Hypertension Dementia Thyroid disorder Sister CAD (coronary artery disease) Other Hyperlipidemia Social History Smoking/Tobacco Use Status: Never Smoking risk assessment performed?: Yes Alcohol Intake: current Alcohol Intake frequency: a few times a month Alcohol type: wine Drug use: Never Substance use type: does not use Current gender identity: female Do you feel safe at home: Yes Do you feel safe in your relationship?: Yes
[2024-02-19 10:29] LABS: Lyme Ab w Rflx to Lyme Confirm Negative (Negative)
[2024-02-20 18:02] LABS: Anaplasma phagocytophilum Negative (Negative); B. miyamotoi PCR Negative (Negative); Babesia divergens/MO-1 Negative (Negative); Babesia duncani Negative (Negative); Babesia microti Negative (Negative); Ehrlichia chaffeensis Negative (Negative); Ehrlichia ewingii/canis Negative (Negative); Ehrlichia muris eauclairensis Negative (Negative)
== END 2024-02-17 20:22 | disposition home or self-care (01) ==
PROVIDERS: Emergency Provider Physician Assistant; PCP Family Medicine
DX: B02.21 Postherpetic geniculate ganglionitis (principal); G51.0 Bell's palsy; E87.6 Hypokalemia; E11.9 Type 2 diabetes mellitus without complications; I10 Essential (primary) hypertension; Z79.84 Long term (current) use of oral hypoglycemic drugs
CPT/HCPCS: 80053; 87798; 99283; 85025; 86618; 86787; J7512

== ENCOUNTER 2024-04-24 00:55 | Outpatient (CLI) | payer OTHER, SELFPAY ==
--- NOTE | 2024-04-24 15:15 | DI.US_ITS ---
Exam(s) US SOFT TISSUE HEAD OR NECK EXAM: US SOFT TISSUE HEAD OR NECK CLINICAL HISTORY: NECK PAIN, M54.2 CERVICALGIA, DISCOMFORT LATERAL THYROID. TECHNIQUE: Ultrasound was performed using standard protocol. COMPARISON: US US SOFT TISSUE EXTREMITY from 05/18/2021 FINDINGS: Ultrasound of lymph nodes on both sides the neck was performed. There are numerous lymph nodes noted bilaterally which exhibit upper normal size. The largest lymph node on the right side measures 2.3 x 0.4 x 1.5 cm. The largest lymph node on the left side measures 1.3 x 0.5 x 0.9 cm. There are no abnormal fluid collections. IMPRESSION: Minimally prominent lymph nodes on both sides the neck. Maximum size measurements as above. DATA REPOSITORY:
== END 2024-04-24 01:15 ==
LOC: DI 00:55
PROVIDERS: PCP Family Medicine; Visit Provider Family Medicine
DX: M54.2 Cervicalgia (principal)
CPT/HCPCS: 76536

== ENCOUNTER 2024-05-15 00:55 | Outpatient (CLI) | payer OTHER, SELFPAY ==
[2024-05-15] MEDS: Gadoterate meglumine 20 ML VIAL 15 ML IVP (13:20)
--- NOTE | 2024-05-15 13:50 | DI.MRI_ITS ---
Exam(s) MR IAC BRAIN WO/W EXAM: MR IAC BRAIN WO/W CLINICAL HISTORY: RT-sided facial paralysis,asymmetrical hearing LOSS,H91.8X3,G51.0,BELLS TECHNIQUE: Multiplanar multisequence MRI of the brain was performed. Both noninfused and contrast i nfused sequences were performed. IAC specific sequences performed. IV Contrast injected was 15 cc Dotarem. COMPARISON: Performed 10/31/2013 was reviewed. FINDINGS: CEREBRAL PARENCHYMA: No evidence of intracranial hemorrhage, mass effect nor shift of midline structu re. No extraaxial fluid collections. Ventricles are not enlarged nor shifted. There is no significant focal signal abnormality in the cerebellar hemispheres nor within the jai, m idbrain, and thalami. There is no abnormal signal abnormality in the immediate periventricular and supraventricular white m atter. There is a small 4 mm focus of FLAIR bright signal abnormality in the subcortical white matte r posterior right frontal lobe which is unchanged from 2014. This does not exhibit evidence of hemor rhage, surrounding edema, enhancement, nor restricted diffusion. Indeed, there are also no areas of restricted diffusion elsewhere in the brain to suggest acute/subacute ischemic events. On the thin sub mm slice T2 axial sequence the 7th and 8th cranial nerves exhibit normal appearance w ithin the internal auditory canals. However, on the right side there is a branch vessel off of the r ight-side of the basilar artery which loops towards the level of the porous acoustic of the right int ernal auditory canal and appears to contact the right 7th cranial nerve at this level. This may be s ignificant. SWI: No microhemorrhages evident. There are no ring enhancing lesions in the brain. There is no abnormal meningeal enhancement. INTERNAL AUDITORY CANALS: There are no masses in the cerebellopontine angles and no evidence of enhan cing intra canalicular acoustic neuroma/schwannoma.. PITUITARY GLAND: No mass nor parasellar abnormality. No obvious abnormality in the cavernous sinuses. FLOW VOIDS: The expected flow void are noted. No evidence of obvious aneurysm nor obvious vascular ma lformation. PARANASAL SINUSES: The visualized paranasal sinuses appear unremarkable. ORBITS: There appears to been left orbit cataract surgery. IMPRESSION: 1. There is a single nonspecific 4 mm focus of signal abnormality in the posterior right frontal lobe which is unchanged from 2014 MRI study. This does not exhibit hemorrhage, surrounding edema, enhanc ement nor restricted diffusion. There are no other FLAIR bright signal abnormalities in the brain. 2. No abnormal enhancing intracranial findings. There are no ring enhancing lesions in the brain and there is no abnormal meningeal enhancement. 3. No evidence of acoustic neuroma/schwannoma, as per request. 4. There is a branch vessel off of the right-side of the basilar artery which is probably anterior i nferior cerebellar artery which loops towards the right facial nerve (7th cranial nerve) at the level the porous acoustic of the right internal auditory canal. Correlation with any clinical history of tic douloureux/trigeminal neuralgia recommended. DATA REPOSITORY:
== END 2024-05-15 01:15 ==
LOC: DI 00:55
PROVIDERS: PCP Family Medicine; Visit Provider Registered Nurse Maternal Newborn
DX: G51.0 Bell's palsy (principal); H91.8X3 Other specified hearing loss, bilateral
CPT/HCPCS: 70553

== ENCOUNTER 2024-06-20 16:44 | Outpatient (REF) | payer OTHER, SELFPAY ==
[2024-06-20 20:02] LABS: ALT 23 U/L (14-59); AST 17 U/L (15-37); Alkaline Phosphatase 98 U/L (46-116); Anion Gap 8.9 mmol/L (3-11); BUN 18 mg/dL (7-18); Bilirubin, Total 0.32 mg/dL (0.2-1.0); CO2 31.1 mmol/L (21.0-32.0); CREATININE 0.8 mg/dL (0.55-1.02); Calcium 10.1 mg/dL (8.5-10.1); Calculated LDL 213 mg/dL (<100); Chloride 103 mmol/L (98-107); Cholesterol 305 mg/dL (<200); Estimated GFR 76.31 (mL/min/1.73m2); Glucose 92 mg/dL (74-106); HDL Cholesterol 47 mg/dL (40-60); Potassium 3.5 mmol/L (3.5-5.1); Sodium 143 mmol/L (136-145); TSH (W/Ref FT4) 1.59 uIU/mL (0.36-3.74); Total Protein 7.8 g/dL (6.4-8.2); Triglyceride 226 mg/dL (<150)
== END 2024-06-20 16:45 | disposition home or self-care (01) ==
LOC: NCHCN 16:44
PROVIDERS: PCP Family Medicine; Visit Provider Family Medicine
DX: E11.9 Type 2 diabetes mellitus without complications (principal)
CPT/HCPCS: 80053; 80061; 84443

== ENCOUNTER 2025-03-07 01:13 | Outpatient (CLI) | payer MEDICARE, SELFPAY ==
--- NOTE | 2025-03-07 13:44 | DI.RAD_ITS ---
Exam(s) XR HAND LT COMPLETE XR WRIST LT COMPLETE EXAM: XR WRIST LT COMPLETE CLINICAL HISTORY: PAIN LEFT WRIST M25.532. TECHNIQUE: 2D digital imaging was performed. Three views of the hand and wrist. COMPARISON: CR LEFT WRIST COMPLETE from 09/30/2016 CR XR HAND LT COMPLETE from 03/07/2025 FINDINGS: BONES: No acute fracture is present. No bony destructive lesion is seen. A 1st carpometacarpal joint prosthesis is again noted. There has been no change in the alignment. There are mild degenerative changes of the intercarpal articulations and metacarpophalangeal joints. There are moderate degenerative changes of the interphalangeal joints. JOINTS: The carpal bones are normally aligned. SOFT TISSUE: Normal. IMPRESSION: Stable appearance of 1st carpometacarpal joint prosthesis. [id number] degenerative changes of the hand and wrist. No bony erosions. DATA REPOSITORY: RADIATION DOSE DELIVERED:
--- NOTE | 2025-03-07 13:44 | DI.RAD_ITS ---
Exam(s) XR SHOULDER LT COMPLETE 2+V EXAM: XR SHOULDER LT COMPLETE 2+V CLINICAL HISTORY: PAIN LEFT SHOULDER M25.512. TECHNIQUE: 2D digital imaging was performed. Five views. COMPARISON: CR XR SHOULDER RT COMPLETE 2+V from 05/18/2022 FINDINGS: BONES: No acute fracture is present. No bony destructive lesion is seen. JOINTS: No dislocation present. There is spurring at the AC joint and margin of the glenoid. The humeral joint space is maintained. SOFT TISSUE: Normal. IMPRESSION: Mild degenerative changes of the glenohumeral joint. Moderate degenerative changes of the AC joint. DATA REPOSITORY: RADIATION DOSE DELIVERED:
== END 2025-03-07 01:33 ==
PROVIDERS: PCP Family Medicine; Visit Provider Family Medicine
DX: M19.042 Primary osteoarthritis, left hand (principal); M19.032 Primary osteoarthritis, left wrist; Z96.692 Finger-joint replacement of left hand
CPT/HCPCS: 73030; 73110; 73130

== ENCOUNTER 2025-03-07 14:04 | Outpatient (CLI) | payer MEDICARE, SELFPAY ==
[2025-03-09 23:01] LABS: B. miyamotoi PCR Negative (Negative); Babesia divergens/MO-1 Negative (Negative); Ehrlichia muris eauclairensis Negative (Negative)
[2025-03-10 10:57] LABS: Lyme Ab w Rflx to Lyme Confirm Negative (Negative)
== END 2025-03-07 14:05 | disposition home or self-care (01) ==
LOC: LBO 14:05
PROVIDERS: PCP Family Medicine; Visit Provider Family Medicine
DX: M79.18 Myalgia, other site (principal)
CPT/HCPCS: 36415; 87798; 73030; 73110; 73130; 86618

== ENCOUNTER → 2025-04-14 13:31 | Outpatient (BNVA) | payer MEDICARE, SELFPAY | PROVIDERS: PCP Family Medicine; Referring Provider Family Medicine; Visit Provider Student in an Organized Health Care Education/Training Program | DX: M19.032 Primary osteoarthritis, left wrist (principal) | CPT/HCPCS: 99203 ==

== ENCOUNTER 2025-05-05 15:22 | Outpatient (CLI) | payer MEDICARE, SELFPAY ==
--- NOTE | 2025-05-05 14:30 | DI.RAD_ITS ---
Exam(s) XR HAND RT COMPLETE EXAM: XR HAND RT COMPLETE CLINICAL HISTORY: RIGHT WRIST PAIN. TECHNIQUE: 2D digital imaging was performed. Three views. COMPARISON: CR XR HAND LT COMPLETE from 03/07/2025 FINDINGS: BONES: No acute fracture is present. No bony destructive lesion is seen. JOINTS: No dislocation present. Marked narrowing of the interphalangeal joints of the fingers. Severe degenerative changes at the 1st carpal metacarpal joint, with loss of joint space and prominent periarticular spurring. Mild degenerative changes elsewhere. SOFT TISSUE: Normal. IMPRESSION: Degenerative changes greatest at the 1st carpometacarpal joint and interphalangeal joints. DATA REPOSITORY: RADIATION DOSE DELIVERED:
== END 2025-05-05 15:23 | disposition home or self-care (01) ==
LOC: DIORS 15:24
PROVIDERS: PCP Family Medicine; Referring Provider Family Medicine; Visit Provider Physician Assistant
DX: M25.531 Pain in right wrist (principal)
CPT/HCPCS: 99213; 73130

== ENCOUNTER → 2025-05-14 13:15 | Outpatient (BNVA) | payer MEDICARE, SELFPAY | PROVIDERS: PCP Family Medicine; Referring Provider Family Medicine; Visit Provider Student in an Organized Health Care Education/Training Program | DX: M19.012 Primary osteoarthritis, left shoulder (principal) | CPT/HCPCS: 99213 ==

== ENCOUNTER → 2025-06-09 12:54 | Outpatient (BNVA) | payer MEDICARE, SELFPAY | PROVIDERS: PCP Family Medicine; Referring Provider Family Medicine; Visit Provider Physician Assistant | DX: M19.031 Primary osteoarthritis, right wrist (principal); M19.032 Primary osteoarthritis, left wrist | CPT/HCPCS: 99212 ==